=== PATIENT | male | born 1970 | race Caucasian/White ===

== ENCOUNTER 2019-08-17 15:30 | Emergency (ER) | payer MEDICARE, SELFPAY ==
[2019-08-17 15:34] VITALS: BMI 25.1
--- NOTE | 2019-08-17 15:36 | W.ED.SKABFB ---
HPI - Skin/Abscess/Foreign Bdy General: Chief complaint: Skin/Abscess/Foreign Body Stated complaint: INFECTION ON ABDOMEN Time Seen by Provider: 08/17/19 15:35 Source: patient Mode of arrival: ambulatory Limitations: no limitations History of Present Illness: HPI narrative: Patient comes in with a sore crusting area to the umbilical area. Patient reports that he he has had more lesions spreading out from the original lesion now. Patient denies any fever or significant pain. Patient does have a history of diabetes. Patient appears well. Patient appears in no pain. MD complaint: lesion Review of Systems General: Reports: 10 or more systems reviewed and unremarkable except in HPI and below Skin/Breast: Reports: new lesion PFSH ED PFSH: Social History Smoking and tobacco status: current every day smoker Physical Exam Const: COMMON NORMALS: no apparent distress and oriented x3 GENERAL APPEARANCE: cooperative HENMT: COMMON NORMALS: normocephalic, external ears normal, EAC's normal, TM's normal bilaterally and external nose normal HEAD & SCALP: normal to inspection and normocephalic FACE & SINUS: normal facial exam NOSE: external nose normal GENERAL EAR: hearing not grossly impaired EXTERNAL EAR: Yes external ears normal EXTERNAL AUDITORY CANAL: EAC's normal TYMPANIC MEMBRANE: TM's normal bilaterally MOUTH: oral and palatal mucosa normal THROAT: posterior oropharynx normal Eye: COMMON NORMALS: PERRL and EOMs intact bilaterally PUPIL: Yes PERRL Neck/C-Spine: COMMON NORMALS: full ROM and no lymphadenopathy Lymph: LYMPHATIC: no lymphedema noted Chest: COMMONS NORMALS: inspection of chest normal and palpation of chest normal Resp: COMMON NORMALS: normal respiratory effort and clear to auscultation bilaterally AUSCULTATION: clear to auscultation bilaterally Cardio: COMMON NORMALS: regular rate and regular rhythm RATE: regular rate RHYTHM: regular rhythm GI: COMMON NORMALS: normal to inspection, nondistended, normoactive bowel sounds and non-tender : COMMON NORMALS: Yes no CVA tenderness BLADDER/KIDNEY EXAM: Yes no CVA tenderness Back/Pelvis: COMMON NORMALS: no CVA tenderness and thoracic and lumbar spine normal to inspection Extremity: COMMON NORMALS: normal to inspection GENERAL: No edema Neuro: COMMON NORMALS: oriented x3, moves all extremities and no focal motor deficits Psych: COMMON NORMALS: mental status grossly normal and cooperative Skin: NARRATIVE SKIN EXAM: Patient has crusted lesions to the umbilical area with surrounding satellite radiations. Minimal redness is noted surrounding each of the lesions. Mild tenderness is noted with palpation of the darker redder lesions. No significant induration is noted. No abscess formation is noted. Course Vital Signs: Vital signs: Vital Signs Temperature 97.7 F 08/17/19 15:37 Pulse Rate 79 08/17/19 15:37 Respiratory Rate 16 08/17/19 15:37 Blood Pressure 185/109 08/17/19 15:37 Pulse Oximetry 98 08/17/19 15:37 MDM - Skin/Abscess/Foreign Bdy MDM Narrative: Medical decision making narrative: Patient comes in today for complaints of developing lesions to the umbilical area. On exam patient has some crusted lesions to the umbilicus and surrounding area. Vital signs are normal. Differential diagnosis includes folliculitis, cellulitis, impetigo, candidiasis. Will start patient on antibiotics of sulfa and mupirocin. Patient was recommended to drink plenty of fluids and monitor for worsening signs and symptoms. Patient was instructed on the use of the antibiotic for the treatment. Patient reports understanding. Discharge Plan Discharge Patient Disposition: Home, Self-Care Clinical Impression: Impetigo Condition: Stable Prescriptions: New mupirocin 2 % ointment 1 applic TOPICAL BID Qty: 22 RF: 0 Bactrim DS 800-160 mg tablet 1 tab PO BID 10 Days Qty: 20 RF: 0 Discharge Orders: Discharge Order (Routine); Ordered 08/17/19 Ordered By: Leonidas Soto Referrals: BALBINA RICKETTS AGNP [Family Provider] - Discharge Diet: Usual diet Discharge Activity: Increase activity as tolerated Patient Instructions: Impetigo (ED) Activity Restrictions/Additional Instructions: Avoid scratching and picking at wounds Good handwashing Medications as directed Monitor for new lesions or new concerns Follow-up with primary care as needed Return to ER for high fever or worsening symptoms Coding Level of Care Code ED Satellite Television Installer for Seun Parada Exam Comprehensive
[2019-08-17 15:37] VITALS: BP 185/109; PULSE 79; RESP 16; TEMP 36.5; O2SAT 98
[2019-08-17 15:47] VITALS: O2SAT 98
[2019-08-17 15:48] VITALS: BP 132/89; PULSE 76; RESP 18; O2SAT 97
== END 2019-08-17 15:49 | disposition home or self-care (01) ==
LOC: ER 15:50
PROVIDERS: Emergency Provider Nurse Practitioner Family; Family Provider Nurse Practitioner
DX: L01.00 Impetigo, unspecified (principal); F17.200 Nicotine dependence, unspecified, uncomplicated
CPT/HCPCS: 12345; 99282

== ENCOUNTER 2019-10-11 23:26 | Emergency (ER) | payer MEDICARE, SELFPAY ==
--- NOTE | 2019-10-11 23:32 | ECG_ITS ---
Measurements Intervals [place] Rate: 112 P: [place]: 0 QRS: 86 QRSD: 101 T: -7 QT: 334 QTc: 456 Sinus TACHYCARDIA WITH RAPID VENTRICULAR RESPONSE ST DEVIATION AND MODERATE T-WAVE ABNORMALITY, CONSIDER LATERAL ISCHEMIA [-0.1+ mV T WAVE IN I/aVL/V5/V6] Compared to ECG 04/06/2019 18:08:31 Sinus rhythm no longer present Myocardial infarct finding no longer present T-wave abnormality still present Possible ischemia still present Electronically Signed On 10-12-2019 8:15:34 CDT by Kiel Joshi M.D. [id number]
--- NOTE | 2019-10-11 23:32 | XRR_ITS ---
PROCEDURE INFORMATION: Exam: XR Chest, 1 View Exam date and time: 10/11/2019 11:47 PM Age: 49 years old Clinical indication: Chest pain; Type not specified TECHNIQUE: Imaging protocol: XR of the chest Views: 1 view. COMPARISON: CR Chest 1 [place] [id number] 04/05/2019 3:56 PM FINDINGS: Lungs: Interstitial prominence without acute airspace disease. Pleural space: No pleural effusion. Heart/Mediastinum: No cardiomegaly. Vasculature: Calcification of the thoracic aorta. Bones/joints: Unremarkable. When correlating with the previous study, no significant interval changes are present. XR/XR chest 1V portable [id number] IMPRESSION: Stable appearance of the chest, not significantly changed from 04/05/19.
[2019-10-11 23:36] VITALS: BP 187/90; PULSE 111; RESP 18; TEMP 36.6; O2SAT 96; BMI 26.4
--- NOTE | 2019-10-11 23:49 | ED_ITS ---
HPI - Chest Pain General: Chief Complaint: Chest Pain Stated Complaint: cp Time Seen by Provider: 10/11/19 23:44 History of Present Illness: HPI narrative: Patient comes in with episode of chest pain and elevated blood pressure. Patient states that he was without his blood pressure medication for 2 or 3 days and noticed that it was really high this evening. Patient felt palpitations with his blood pressure being high and then started having some left side chest discomfort. Patient recently had some angioplasty done to his lower extremities bilaterally. Patient appears well. Patient appears in no pain at this time. Patient does report low grade pain though. Review of Systems General: Reports: 10 or more systems reviewed and unremarkable except in HPI and below Card: Reports: chest pain PFSH ED PFSH: Social History Smoking and tobacco status: current every day smoker Physical Exam Const: COMMON NORMALS: no acute distress and patient oriented x3 GENERAL APPEARANCE: cooperative HENMT: COMMON NORMALS: normocephalic and Normal external nose present HEAD & SCALP: normal to inspection and normocephalic NOSE: Normal external nose present MOUTH: Normal oral and palatal mucosa present Eye: GENERAL EYE: appearance normal, both eyes and all related structures Neck/C-Spine: COMMON NORMALS: full ROM Lymph: LYMPHATIC: no lymphadenopathy noted Chest: COMMONS NORMALS: normal inspection of the chest Resp: COMMON NORMALS: normal respiratory effort EFFORT & INSPECTION: Yes able to speak in complete sentences Cardio: COMMON NORMALS: regular rate and regular rhythm RATE: regular rate RHYTHM: regular rhythm GI: COMMON NORMALS: non-tender : COMMON NORMALS: Yes no CVA tenderness BLADDER/KIDNEY EXAM: Yes no CVA tenderness Back/Pelvis: COMMON NORMALS: no CVA tenderness and thoracic and lumbar spine normal to inspection Extremity: COMMON NORMALS: normal to inspection Neuro: COMMON NORMALS: patient oriented x3 and moves all extremities Psych: COMMON NORMALS: mental status grossly normal and cooperative Skin: NARRATIVE SKIN EXAM: Multiple insect bites are noted to the lower extremities. Patient reports that they are mosquito bites. Course Vital Signs: Vital signs: Vital Signs Temperature 97.8 F 10/11/19 23:36 Pulse Rate 111 H 10/11/19 23:36 Respiratory Rate 18 10/11/19 23:36 Blood Pressure 187/90 10/11/19 23:36 Pulse Oximetry 96 10/11/19 23:36 MDM - Chest Pain MDM Narrative: Medical decision making narrative: Patient comes in today for concerns of chest pain and palpitations. Patient reports being out of his blood pressure medicine for the last 2 to 3 days and ended up coming in due to some chest discomfort after he noticed his blood pressure was really high. Patient appears well. Patient appears in no acute distress. Vital signs were normal except for some elevation in blood pressure. Differential diagnosis included ACS, stable angina, hypertensive crisis. Laboratory values noted no change in troponin at the 2-hour pedro. Remainder of labs were unremarkable except for some hyperglycemia with a blood glucose of 403. Reviewed exam with patient suspect patient had some stable angina may be due to his uncontrolled blood pressure. Discussed patient with his medication whether or not he needed refills for his medication he states that they were available at the pharmacy he was just unable to get them picked up. Recommend continuing with routine care and or to return to the ER for worsening symptoms. Patient reported understanding. Lab Data: Labs: Lab Results 10/11/19 10/11/19 10/11/19 Range/Units 23:51 23:51 23:51 WBC 7.4 (4.0-10.0) 10^3/ uL RBC 4.24 (4.1-5.3) 10^6/u L Hgb 13.6 (11.7-16.6) g/dL Hct 39.8 L (42.0-52.0) % MCV 93.9 (80-94) fL MCH 32.1 (28.0-34.0) pg MCHC 34.2 (30.0-36.0) g/dL RDW 13.3 (12.1-15.1) % Plt Count 245 (130-400) 10^3/c mm MPV 10.8 H (7.4-10.4) fL Neut % (Auto) 58.4 % Lymph % (Auto) 24.6 % Schley % (Auto) 9.5 % Eos % (Auto) 6.1 % Baso % (Auto) 1.0 % Neut # (Auto) 4.3 (1.8-7.7) 10^3/u L Lymph # (Auto) 1.8 (0.8-4.8) 10^3/u L [place] # (Auto) 0.7 (0.2-0.9) 10^3/u L Eos # (Auto) 0.5 (0.0-0.8) 10^3/u L Baso # (Auto) 0.1 (0.0-0.1) 10^3/u L Nucleated RBC % (a uto) 0 % Nucleated RBCs # 0.0 /100WBC PT 11.50 (10.5-13.3) SECO NDS INR 0.82 (0.8-1.2) Sodium 136 (136-145) mmol/L Potassium 4.4 (3.5-5.1) mmol/L Chloride 100 (98-107) mmol/L Carbon Dioxide 25 (22-29) mmol/L Anion Gap 15.4 (5-19) BUN 20 (6-20) mg/dL Creatinine 1.0 (0.7-1.2) mg/dL GFR Calculation 78.8 L (90-130) mL/min Glucose 403 H (65-115) mg/dL Calculated Osmolal ity 295 (285-295) mOsm/k g Calcium 9.1 (8.5-10.5) mg/dL Magnesium 1.9 (1.7-2.3) mg/dL Total Bilirubin 0.2 (0.15-1.2) mg/dL AST 13 (0-40) U/L ALT 21 (0-41) U/L Alkaline Phosphata se 63 (40-130) IU/L Troponin T Baselin e (0-15) ng/mL Troponin T 120 Min shaheed (0-15) ng/mL Total Protein 7.0 (6.6-8.7) g/dL Albumin 4.1 (3.5-5.2) g/dL Globulin 2.9 (1.3-4.6) g/dL Lipase 79 H (13-60) U/L Urine Color (Yellow) Urine Appearance (CLEAR) Urine pH (5-7) Ur Specific Gravit y (1.005-1.030) Urine Protein (Negative) Urine Glucose (UA) (Normal) Urine Ketones (Negative) Urine Blood (Negative) Urine Nitrate (Negative) Urine Bilirubin (NEGATIVE) Urine Urobilinogen (Negative) mg/dL Ur Leukocyte Sherrell ase (Negative) Urine RBC (0-2) /hpf Urine WBC (0-5) /hpf Ur Squamous Epith Cells (0-5) Urine Bacteria (NONE) 10/11/19 10/12/19 10/12/19 Range/Units 23:51 01:01 01:47 WBC (4.0-10.0) 10^3/ uL RBC (4.1-5.3) 10^6/u L Hgb (11.7-16.6) g/dL Hct (42.0-52.0) % MCV (80-94) fL MCH (28.0-34.0) pg MCHC (30.0-36.0) g/dL RDW (12.1-15.1) % Plt Count (130-400) 10^3/c mm MPV (7.4-10.4) fL Neut % (Auto) % Lymph % (Auto) % Schley % (Auto) % Eos % (Auto) % Baso % (Auto) % Neut # (Auto) (1.8-7.7) 10^3/u L Lymph # (Auto) (0.8-4.8) 10^3/u L Schley # (Auto) (0.2-0.9) 10^3/u L Eos # (Auto) (0.0-0.8) 10^3/u L Baso # (Auto) (0.0-0.1) 10^3/u L Nucleated RBC % (a uto) % Nucleated RBCs # /100WBC PT (10.5-13.3) SECO NDS INR (0.8-1.2) Sodium (136-145) mmol/L Potassium (3.5-5.1) mmol/L Chloride (98-107) mmol/L Carbon Dioxide (22-29) mmol/L Anion Gap (5-19) BUN (6-20) mg/dL Creatinine (0.7-1.2) mg/dL GFR Calculation (90-130) mL/min Glucose (65-115) mg/dL Calculated Osmolal ity (285-295) mOsm/k g Calcium (8.5-10.5) mg/dL Magnesium (1.7-2.3) mg/dL Total Bilirubin (0.15-1.2) mg/dL AST (0-40) U/L ALT (0-41) U/L Alkaline Phosphata se (40-130) IU/L Troponin T Baselin e 22 H (0-15) ng/mL Troponin T 120 Min shaheed 24.77 H (0-15) ng/mL Total Protein (6.6-8.7) g/dL Albumin (3.5-5.2) g/dL Globulin (1.3-4.6) g/dL Lipase (13-60) U/L Urine Color Yellow (Yellow) Urine Appearance Clear (CLEAR) Urine pH 7 (5-7) Ur Specific Gravit y 1.005 (1.005-1.030) Urine Protein Neg (Negative) Urine Glucose (UA) 4+ H (Normal) Urine Ketones 1+ H (Negative) Urine Blood Neg (Negative) Urine Nitrate Negative (Negative) Urine Bilirubin Neg (NEGATIVE) Urine Urobilinogen Norm (Negative) mg/dL Ur Leukocyte Sherrell ase Negative (Negative) Urine RBC 0-4 H (0-2) /hpf Urine WBC Rare (0-5) /hpf Ur Squamous Epith Cells Rare (0-5) Urine Bacteria Trace (NONE) EKG Data^: EKG 1: Attestation: I personally reviewed and interpreted this EKG as follows: (2335, EKG shows sinus rhythm, no ectopy, no ST elevation, regular rate at 112 bpm, when compared to previous EKG from April 06, 2019 no significant changes were noted.) EKG 2: Attestation: I personally reviewed and interpreted this EKG as follows: (147, sinus rhythm rate 90 bpm regular, no ectopy, no ST elevation.) Discharge Plan Discharge Patient Disposition: Home, Self-Care Clinical Impression: Stable angina Condition: Stable Prescriptions: No Action mupirocin 2 % ointment 1 applic TOPICAL BID Qty: 22 RF: 0 Discharge Orders: Discharge Order (Routine); Ordered 10/12/19 Ordered By: Leonidas Soto Discharge Diet: Usual diet Discharge Activity: Increase activity as tolerated Activity Restrictions/Additional Instructions: Home and rest. Continue with routine medications as directed. Follow-up with primary care for recheck in 1 week. Return to the ER for worsening symptoms or new concerns. Coding Level of Care Code ED Choir Accompanist for Vivekg Fwd Exam Comprehensive
[2019-10-12 00:01] LABS: Basophils # 0.1 10^3/uL (0.0-0.1); Eosinophils # 0.5 10^3/uL (0.0-0.8); Eosinophils % 6.1 %; Hematocrit 39.8 % (42.0-52.0); Hemoglobin 13.6 g/dL (11.7-16.6); Lymphocytes # 1.8 10^3/uL (0.8-4.8); Lymphocytes % 24.6 %; Mean Corpuscular HGB Conc 34.2 g/dL (30.0-36.0); Mean Corpuscular Hemoglobin 32.1 pg (28.0-34.0); Mean Corpuscular Volume 93.9 fL (80-94); Mean Platelet Volume 10.8 fL (7.4-10.4); Monocytes # 0.7 10^3/uL (0.2-0.9); Monocytes % 9.5 %; Neutrophils # 4.3 10^3/uL (1.8-7.7); Neutrophils % 58.4 %; Nucleated Red Blood Cells % 0 %; Platelet Count 245 10^3/cmm (130-400); Red Blood Count 4.24 10^6/uL (4.1-5.3); Red Cell Distribution Width 13.3 % (12.1-15.1); White Blood Count 7.4 10^3/uL (4.0-10.0)
[2019-10-12] MEDS: aspirin 325 mg Tablet PO (00:01)
[2019-10-12] MEDS: nitroglycerin 0.4 mg sublingual Tablet SUBLINGUAL (00:02)
[2019-10-12 00:10] LABS: INR 0.82 (0.8-1.2)
[2019-10-12 00:16] LABS: Alanine Aminotransferase 21 U/L (0-41); Albumin Level 4.1 g/dL (3.5-5.2); Alkaline Phosphatase 63 IU/L (40-130); Anion Gap 15.4 (5-19); Aspartate Amino Transferase 13 U/L (0-40); Blood Urea Nitrogen 20 mg/dL (6-20); Calcium 9.1 mg/dL (8.5-10.5); Carbon Dioxide 25 mmol/L (22-29); Chloride 100 mmol/L (98-107); Globulin 2.9 g/dL (1.3-4.6); Glomerular Filtration Rate 78.8 mL/min (90-130); Glucose 403 mg/dL (65-115); Lipase 79 U/L (13-60); Magnesium 1.9 mg/dL (1.7-2.3); Osmolality Calculated 295 mOsm/kg (285-295); Potassium 4.4 mmol/L (3.5-5.1); Sodium 136 mmol/L (136-145); Total Bilirubin 0.2 mg/dL (0.15-1.2)
[2019-10-12 00:18] LABS: Troponin(5th) Baseline 22 ng/mL (0-15)
[2019-10-12 01:09] VITALS: BP 143/86; PULSE 88; RESP 16; O2SAT 96
[2019-10-12 01:30] LABS: Bilirubin Urine Neg (NEGATIVE); Blood Urine Neg (Negative); Glucose Urine UA 4+ (Normal); Ketones Urine 1+ (Negative); Leukocyte Esterase Urine Negative (Negative); Nitrate Urine Negative (Negative); Protein Urine Neg (Negative); Specific Gravity, Urine 1.005 (1.005-1.030); Urine Appearance Clear (CLEAR); Urine Color Yellow (Yellow); Urobilinogen Urine Norm (Negative); pH Urine 7 (5-7)
[2019-10-12 01:31] LABS: Add Urine Culture? No; Bacteria Urine TRACE; RBC Urine 0-4 /hpf (0-2); Squamous Epithelial Cell Urine RARE (0-5); WBC Urine RARE /hpf (0-5)
--- NOTE | 2019-10-12 01:32 | ECG_ITS ---
Measurements Intervals [place] Rate: 90 P: 67 RI: 147 QRS: 116 QRSD: 100 T: -39 QT: 355 QTc: 436 SINUS RHYTHM INCOMPLETE RIGHT BUNDLE BRANCH BLOCK [90+ ms QRS DURATION, TERMINAL R IN V1/V V1/V2, 40+ m 40+ ms S IN I/aVL/V4/V5/V6] RIGHT VENTRICULAR HYPERTROPHY [SOME/ALL OF: PROMINENT R IN V1, LATE TRANSIT TRANSITION, RAD,RAD, CRISSY, SSS] ST DEVIATION AND MODERATE T-WAVE ABNORMALITY, CONSIDER LATERAL ISCHEMIA [-0.1+ [-0.1+mV [-0.1+mV mV mV T WAVE IN I/aVL/V5/V6] ST DEVIATION AND MODERATE T-WAVE ABNORMALITY, CONSIDER INFERIOR ISCHEMIA [-0 [-0.1+ mV mV T WAVE IN II/aVF] Electronically Signed On 10-12-2019 8:17:39 CDT by Kiel Joshi M.D. [id number]
[2019-10-12 02:11] LABS: Troponin 5 2HR 24.77 ng/mL (0-15); Troponin 5 2HR Delta 2.77 ABS# (0-10)
[2019-10-12 02:52] VITALS: BP 138/80; PULSE 84; RESP 16; O2SAT 96
== END 2019-10-12 02:55 | disposition home or self-care (01) ==
PROVIDERS: Emergency Medicine; Emergency Provider Nurse Practitioner Family
DX: I20.8 Other forms of angina pectoris (principal); F17.210 Nicotine dependence, cigarettes, uncomplicated
CPT/HCPCS: 12345; 71045; 80053; 81001; 83690; 83735; 84484; 85025; 85610; 93005; 99283; 99284

== ENCOUNTER 2020-03-12 06:06 | Emergency (ER) | payer MEDICARE, SELFPAY ==
[2020-03-12 06:07] VITALS: BP 195/109; PULSE 83; RESP 18; TEMP 36.4; O2SAT 94; BMI 26.4
--- NOTE | 2020-03-12 06:18 | PC.NURSE ---
EKG done at 0615 and shown to ER doctor
--- NOTE | 2020-03-12 06:23 | ED_ITS ---
HPI - Allergic Reaction General: Chief complaint: Allergic Reaction Stated complaint: ETOH AND ALLERGIC REACTION Time Seen by Provider: 03/12/20 06:17 History of Present Illness: HPI narrative: 49-year-old male presents to the emergency room with complaint of rash. States he woke up with this rash on the trunk and lower extremities. He was transported to the ER by EMS he was given Benadryl and epinephrine and reports that the rash has resolved. He has had this in the past but is never been evaluated for it before he denies any chest pain or abdominal pain denies any difficulty with breathing. Denies any recent respiratory illness or any flulike symptoms. MD complaint: allergic reaction and hives Onset (ago): minute(s) Exposure: unknown Associated symptoms: Deny abdominal pain, difficulty breathing, dysphagia, dizziness, facial swelling, hoarseness, itching, lip swelling, nausea, rash, tongue swelling or vomiting Review of Systems ENMT: Denies: hoarseness GI: Denies: abdominal pain, nausea, vomiting or dysphagia Neuro: Denies: dizziness All/Imm: Denies: tongue swelling or facial swelling PFSH ED PFSH: Social History Smoking and tobacco status: current every day smoker Course Vital Signs: Vital signs: Vital Signs Temperature 98.6 F 03/12/20 07:27 Pulse Rate 88 03/12/20 07:27 Respiratory Rate 18 03/12/20 07:27 Blood Pressure 164/94 03/12/20 07:27 Pulse Oximetry 96 03/12/20 07:27 MDM - Allergic Reaction MDM Narrative: Medical decision making narrative: Patient is feeling much better. His sats do drop a little bit while he is in bed and sleeping. But when I wake him up any is sitting up and talking his sats returned to normal he does admit to having some sleep apnea encourage him to follow-up with that. We will go ahead and discharge him home for now can use Zyrtec as needed Lab Data: Labs: Lab Results 03/12/20 03/12/20 Range/Units 06:41 06:41 WBC 7.6 (4.0-10.0) 10^3/ uL RBC 4.48 (4.1-5.3) 10^6/u L Hgb 13.7 (11.7-16.6) g/dL Hct 41.0 L (42.0-52.0) % MCV 91.5 (80-94) fL MCH 30.6 (28.0-34.0) pg MCHC 33.4 (30.0-36.0) g/dL RDW 13.2 (12.1-15.1) % Plt Count 237 (130-400) 10^3/c mm MPV 10.9 H (7.4-10.4) fL Neut % (Auto) 66.7 % Lymph % (Auto) 20.5 % [place] % (Auto) 8.7 % Eos % (Auto) 2.8 % Baso % (Auto) 0.9 % Neut # (Auto) 5.03 (1.8-7.7) 10^3/u L Lymph # (Auto) 1.6 (0.8-4.8) 10^3/u L [place] # (Auto) 0.7 (0.2-0.9) 10^3/u L Eos # (Auto) 0.2 (0.0-0.8) 10^3/u L Baso # (Auto) 0.1 (0.0-0.1) 10^3/u L Nucleated RBC % (a uto) 0 % Nucleated RBCs # 0.0 /100WBC Sodium 134 L (136-145) mmol/L Potassium 4.5 (3.5-5.1) mmol/L Chloride 97 L (98-107) mmol/L Carbon Dioxide 24 (22-29) mmol/L Anion Gap 17.5 (5-19) BUN 21 H (6-20) mg/dL Creatinine 1.0 (0.7-1.2) mg/dL GFR Calculation 78.8 L (90-130) mL/min Glucose 396 H (65-115) mg/dL Calculated Osmolal ity 298 H (285-295) mOsm/k g Calcium 9.0 (8.5-10.5) mg/dL Total Bilirubin 0.3 (0.15-1.2) mg/dL AST 13 (0-40) U/L ALT 17 (0-41) U/L Alkaline Phosphata se 58 (40-130) IU/L Total Protein 6.3 L (6.6-8.7) g/dL Albumin 4.2 (3.5-5.2) g/dL Globulin 2.1 (1.3-4.6) g/dL Discharge Plan Discharge Patient Disposition: Home Clinical Impression: Urticaria Condition: Stable Prescriptions: New cetirizine 10 mg capsule 10 mg PO BID PRN (Reason: allergy symptoms) Qty: 60 RF: 0 No Action mupirocin 2 % ointment 1 applic TOPICAL BID Qty: 22 RF: 0 Discharge Orders: Discharge Order (Routine); Ordered 03/12/20 Ordered By: Jose Mike Discharge Diet: Usual diet Discharge Activity: Increase activity as tolerated Activity Restrictions/Additional Instructions: Cetirizine 10 mg 1 p.o. twice daily as needed for rash or hives. Follow-up with your primary care doctor. If you have worsening or changes symptoms return. Discharge Date/Time: 03/12/20 07:31 Coding Level of Care Code ED Education Courses Sales Representative for Seun Parada
[2020-03-12 06:45] LABS: Basophils # 0.1 10^3/uL (0.0-0.1); Basophils % 0.9 %; Eosinophils # 0.2 10^3/uL (0.0-0.8); Eosinophils % 2.8 %; Hemoglobin 13.7 g/dL (11.7-16.6); Lymphocytes # 1.6 10^3/uL (0.8-4.8); Lymphocytes % 20.5 %; Mean Corpuscular HGB Conc 33.4 g/dL (30.0-36.0); Mean Corpuscular Hemoglobin 30.6 pg (28.0-34.0); Mean Corpuscular Volume 91.5 fL (80-94); Mean Platelet Volume 10.9 fL (7.4-10.4); Monocytes # 0.7 10^3/uL (0.2-0.9); Monocytes % 8.7 %; Neutrophils # 5.03 10^3/uL (1.8-7.7); Neutrophils % 66.7 %; Nucleated Red Blood Cells % 0 %; Platelet Count 237 10^3/cmm (130-400); Red Blood Count 4.48 10^6/uL (4.1-5.3); Red Cell Distribution Width 13.2 % (12.1-15.1); White Blood Count 7.6 10^3/uL (4.0-10.0)
[2020-03-12 06:57] VITALS: BP 138/73; PULSE 85; RESP 18; O2SAT 98
--- NOTE | 2020-03-12 06:58 | PC.NURSE ---
Received report assumed care, no changes noted from report. Continue to monitor.
[2020-03-12 07:01] LABS: Alanine Aminotransferase 17 U/L (0-41); Albumin Level 4.2 g/dL (3.5-5.2); Alkaline Phosphatase 58 IU/L (40-130); Anion Gap 17.5 (5-19); Aspartate Amino Transferase 13 U/L (0-40); Blood Urea Nitrogen 21 mg/dL (6-20); Carbon Dioxide 24 mmol/L (22-29); Chloride 97 mmol/L (98-107); Globulin 2.1 g/dL (1.3-4.6); Glomerular Filtration Rate 78.8 mL/min (90-130); Glucose 396 mg/dL (65-115); Osmolality Calculated 298 mOsm/kg (285-295); Potassium 4.5 mmol/L (3.5-5.1); Sodium 134 mmol/L (136-145); Total Bilirubin 0.3 mg/dL (0.15-1.2); Total Protein 6.3 g/dL (6.6-8.7)
[2020-03-12 07:27] VITALS: BP 164/94; PULSE 88; RESP 18; TEMP 37; O2SAT 96
== END 2020-03-12 07:31 | disposition home or self-care (01) ==
PROVIDERS: Emergency Provider Family Medicine
DX: L50.9 Urticaria, unspecified (principal); F17.210 Nicotine dependence, cigarettes, uncomplicated
CPT/HCPCS: 12345; 80053; 85025; 99283

== ENCOUNTER → 2020-07-21 08:37 | Outpatient (BNVA) | payer MEDICARE, SELFPAY | PROVIDERS: Visit Provider Psychiatry & Neurology Psychiatry | DX: F32.9 Major depressive disorder, single episode, unspecified (principal) | CPT/HCPCS: 90792 ==

== ENCOUNTER → 2020-09-01 08:18 | Outpatient (BNVA) | payer MEDICARE, SELFPAY | PROVIDERS: Visit Provider Psychiatry & Neurology Psychiatry | DX: F32.9 Major depressive disorder, single episode, unspecified (principal); F43.12 Post-traumatic stress disorder, chronic | CPT/HCPCS: 99214 ==

== ENCOUNTER → 2020-10-06 11:05 | Outpatient (BNVA) | payer MEDICARE, MEDICAID, SELFPAY | PROVIDERS: Visit Provider Psychiatry & Neurology Psychiatry | DX: F32.9 Major depressive disorder, single episode, unspecified (principal) | CPT/HCPCS: 99214 ==

== ENCOUNTER 2020-11-15 13:05 | Emergency (ER) | payer MEDICARE, MEDICAID, SELFPAY ==
[2020-11-15 13:24] VITALS: BP 153/79; PULSE 110; RESP 18; TEMP 36.7; O2SAT 95; BMI 26.4
--- NOTE | 2020-11-15 14:23 | ECG_ITS ---
[facility] Test Date: 2020-11-15 Pat Name: Jeffrey Ford Department: Room: Gender: Male Parks And Recreation Manager: : 1970 Requested By: Jam Bobby Order Number: [id number] Reading MD: LUANNE COONEY Measurements Intervals [place] Rate: 89 P: 59 AL: 149 QRS: 49 QRSD: 101 T: 24 QT: 349 QTc: 425 Interpretive Statements SINUS RHYTHM ST DEVIATION AND MODERATE T-WAVE ABNORMALITY, CONSIDER LATERAL ISCHEMIA [-0.1+ mV T WAVE IN I/aVL/V5/V6] Compared to ECG 10/12/2019 01:46:29 Incomplete right bundle-branch block no longer present Right ventricular hypertrophy no longer present Atrial abnormality no longer present T-wave abnormality still present Possible ischemia still present Electronically Signed On 11-16-2020 18:50:08 CDT by LUANNE COONEY [id number]
--- NOTE | 2020-11-15 14:24 | ED_ITS ---
HPI - Extremity Problem General: Chief complaint: Extremity Problem,Nontraumatic Stated complaint: CRAMPING IN LEFT LEG Time Seen by Provider: 11/15/20 13:59 Source: patient Mode of arrival: ambulatory Limitations: no limitations History of Present Illness: HPI Narrative: Patient with increasing pain over the last 2 days with walking. Patient states his is cramping in his left lower leg and foot. States he had claudication in the left lower extremity for approximately 3 to 4 weeks. He recently had arterial Doppler of the lower extremities at [facility] on November 10. He showed me the report from his phone and said that patient has mild arterial insufficiency in the right lower extremity and moderate arterial insufficiency in the left lower leg. They were not able to see blood flow in the medial ankle. Complaint: extremity pain Onset (ago): week(s) (4) Pain Consistency: other (Worsening over the past 2 to 3 days.) Location: left and lower extremity (Lower leg and foot) Quality: sharp and other (Aching, cramping) Radiation: none Relieving factors: nothing Exacerbating factors: walking Associated symptoms: Reports myalgias; Deny arthralgias, chest pain, fever(s), rash or short of breath Context: history of peripheral vascular disease and other (Patient has had femoral stents in the past. Patient presently taking Plavix and aspirin) Review of Systems Const: Denies: fever(s) Eyes: Denies: change in vision ENMT: Denies: throat pain Card: Reports: leg pain with exertion; Denies: chest pain or edema Resp: Denies: dyspnea or wheezing GI: Denies: abdominal pain, nausea or vomiting : Denies: flank pain Musc: Denies: neck pain or back pain Skin/Breast: Reports: other (Mild cyanosis of left second through fifth toes. Cap refill decr L toes); Denies: rash Neuro: Denies: headache(s) or numbness in extremities Psych: Denies: anxiety Nolan/Lymph: Denies: enlarged lymph nodes PFSH ED PFSH: Social History Smoking and tobacco status: current every day smoker Physical Exam Const: COMMON NORMALS: no acute distress, patient oriented x3, no limitations and well nourished EXAM LIMITATIONS: altered mental status GENERAL APPEARANCE: cooperative HENMT: COMMON NORMALS: normocephalic and atraumatic HEAD & SCALP: normocephalic and atraumatic FACE & SINUS: normal facial exam Eye: COMMON NORMALS: EOMs intact bilaterally Neck/C-Spine: COMMON NORMALS: full ROM, no lymphadenopathy, supple and no meningeal signs GENERAL: Yes normal visual inspection Lymph: LYMPHATIC: no lymphadenopathy noted Chest: COMMONS NORMALS: normal inspection of the chest and normal palpation of entire chest wall CHEST: No Ecchymosis present and No rash Resp: COMMON NORMALS: normal respiratory effort, No retractions and clear to auscultation bilaterally EFFORT & INSPECTION: No respiratory distress AUSCULTATION: clear to auscultation bilaterally Cardio: COMMON NORMALS: regular rate and regular rhythm JUGULAR VENOUS DISTENTION: no JVD RATE: regular rate RHYTHM: regular rhythm PERIPHERAL PULSES: radial pulses present, posterior tibial pulses present (1/4 on L) and dorsalis pedis present (1/4 on left) GI: COMMON NORMALS: Normal to inspection, nondistended, normoactive bowel sounds present and non-tender : COMMON NORMALS: Yes no CVA tenderness BLADDER/KIDNEY EXAM: Yes no CVA tenderness Back/Pelvis: COMMON NORMALS: no CVA tenderness Extremity: COMMON NORMALS: normal to inspection, full ROM and capillary refill normal Neuro: COMMON NORMALS: patient oriented x3, CN's II-XII intact bilaterally, no focal motor deficits and no sensory deficits noted MENINGEAL SIGNS: Yes no meningeal signs Psych: COMMON NORMALS: mental status grossly normal and Normal thought process present THOUGHT PROCESS: Normal thought process present Skin: COMMON NORMALS: no rashes or lesions noted and no wounds GENERAL SKIN EXAM: no rashes or lesions noted Course Vital Signs: Vital signs: Vital Signs Temperature 98.1 F 11/15/20 13:24 Pulse Rate 110 H 11/15/20 13:24 Respiratory Rate 18 11/15/20 13:24 Blood Pressure 153/79 11/15/20 13:24 Pulse Oximetry 95 11/15/20 13:24 Critical Care Time Critical Care Time: Critical Care Time: Yes Total Critical Care Time: 50 Attestation: See orders. IV insulin, IV fluids. Treatment of hyperglycemia. CT angiogram of the leg. MDM - Extremity (Nontraumatic) MDM Narrative: Medical decision making narrative: Patient has known peripheral vascular disease. Patient has had increasing claudication over the past 2 to 3 days. Patient has had mild claudication for past month. Lab Data: Labs: Lab Results 11/15/20 11/15/20 11/15/20 Range/Units 15:02 15:02 15:46 WBC 7.4 (4.0-10.0) 10^3/ uL RBC 4.43 (4.1-5.3) 10^6/u L Hgb 13.9 (11.7-16.6) g/dL Hct 40.5 L (42.0-52.0) % MCV 91.4 (80-94) fL MCH 31.4 (28.0-34.0) pg MCHC 34.3 (30.0-36.0) g/dL RDW 12.4 (12.1-15.1) % Plt Count 239 (130-400) 10^3/c mm MPV 10.9 H (7.4-10.4) fL Neut % (Auto) 71.8 % Lymph % (Auto) 16.8 % Graham % (Auto) 8.2 % Eos % (Auto) 1.9 % Baso % (Auto) 1.2 % Neut # (Auto) 5.32 (1.8-7.7) 10^3/u L Lymph # (Auto) 1.3 (0.8-4.8) 10^3/u L Graham # (Auto) 0.6 (0.2-0.9) 10^3/u L Eos # (Auto) 0.1 (0.0-0.8) 10^3/u L Baso # (Auto) 0.1 (0.0-0.1) 10^3/u L Nucleated RBC % (a uto) 0 % Nucleated RBCs # 0.0 /100WBC Sodium Cancelled 133 L Potassium Cancelled 4.8 Chloride Cancelled 96 L Carbon Dioxide Cancelled 26 Anion Gap Cancelled 15.8 BUN Cancelled 21 H Creatinine Cancelled 1.1 GFR Calculation Cancelled 70.3 L Glucose Cancelled 447 H Calculated Osmolal ity Cancelled 298 H Calcium Cancelled 8.9 EKG Data^: EKG 1: Attestation: I personally reviewed and interpreted this EKG as follows: EKG interpretation date: 11/15/20 EKG interpretation time: 17:35 Prior EKG tracings: not available for review Interpretation: Normal sinus rhythm with heart rate 89. Nonspecific ST-T changes. LVH, normal axis. Normal MN interval. Normal P wave. Impression normal sinus rhythm with LVH and nonspecific ST-T changes EKG 2: Attestation: I personally reviewed and interpreted this EKG as follows: EKG interpretation date: 11/15/20 EKG interpretation time: 18:03 Prior EKG tracings: available for review Interpretation: EKG shows normal sinus rhythm heart rate 99, normal MN interval, normal P waves, normal QRS, normal ST segment, normal axis. Normal T waves. Normal ST segment. Impression normal EKG. Discharge Plan Discharge Clinical Impression: Claudication of left upper extremity due to atherosclerosis, Insulin dependent diabetes mellitus with complications, Hyperglycemia due to type 1 diabetes mellitus, Peripheral vascular disease of extremity with claudication Condition: Stable Prescriptions: No Action losartan 50 mg tablet 50 mg PO DAILY RF: 0 duloxetine 60 mg capsule,delayed release(DR/EC) 60 mg PO DAILY 30 Days Qty: 30 RF: 3 aspirin [Adult Aspirin Regimen] 81 mg tablet,delayed release (DR/EC) 81 mg PO DAILY RF: 0 multivitamin Tablet 1 tab PO DAILY RF: 0 Chantix 1 mg tablet 1 mg PO BID RF: 0 propranolol 60 mg capsule,extended release 24 hr 60 mg PO DAILY RF: 0 clopidogrel [Plavix] 75 mg tablet 75 mg PO DAILY RF: 0 metoprolol succinate 25 mg tablet extended release 24 hr 25 mg PO DAILY RF: 0 insulin asp prt-insulin aspart [Novolog Mix 70-30 U-100 Insuln] 100 unit/mL (70-30) solution 12 unit SUBCUT DAILY RF: 0 Toujeo Max U-300 SoloStar 300 unit/mL (3 mL) insulin pen 50 unit SUBCUT Q24H RF: 0 pregabalin 150 mg capsule 150 mg PO DAILY RF: 0 mupirocin 2 % ointment 1 applic TOPICAL BID Qty: 22 RF: 0 cetirizine 10 mg capsule 10 mg PO BID PRN (Reason: allergy symptoms) Qty: 60 RF: 0 Coding Level of Care Code ED Floorhand for Chg Fwd Exam Comprehensive
[2020-11-15 15:13] LABS: Basophils # 0.1 10^3/uL (0.0-0.1); Basophils % 1.2 %; Eosinophils # 0.1 10^3/uL (0.0-0.8); Eosinophils % 1.9 %; Hematocrit 40.5 % (42.0-52.0); Hemoglobin 13.9 g/dL (11.7-16.6); Lymphocytes # 1.3 10^3/uL (0.8-4.8); Lymphocytes % 16.8 %; Mean Corpuscular HGB Conc 34.3 g/dL (30.0-36.0); Mean Corpuscular Hemoglobin 31.4 pg (28.0-34.0); Mean Corpuscular Volume 91.4 fL (80-94); Mean Platelet Volume 10.9 fL (7.4-10.4); Monocytes # 0.6 10^3/uL (0.2-0.9); Monocytes % 8.2 %; Neutrophils # 5.32 10^3/uL (1.8-7.7); Neutrophils % 71.8 %; Nucleated Red Blood Cells % 0 %; Platelet Count 239 10^3/cmm (130-400); Red Blood Count 4.43 10^6/uL (4.1-5.3); Red Cell Distribution Width 12.4 % (12.1-15.1); White Blood Count 7.4 10^3/uL (4.0-10.0)
[2020-11-15 16:06] LABS: Anion Gap 15.8 (5-19); Blood Urea Nitrogen 21 mg/dL (6-20); Calcium 8.9 mg/dL (8.5-10.5); Carbon Dioxide 26 mmol/L (22-29); Chloride 96 mmol/L (98-107); Glomerular Filtration Rate 70.3 mL/min (90-130); Glucose 447 mg/dL (65-115); Osmolality Calculated 298 mOsm/kg (285-295); Potassium 4.8 mmol/L (3.5-5.1); Sodium 133 mmol/L (136-145)
--- NOTE | 2020-11-15 16:21 | CTR_ITS ---
PROCEDURE INFORMATION: Exam: CTA Angiogram of the Abdominal Aorta and Bilateral Lower Extremities (Run-off) With IV Contrast Exam date and time: 11/15/2020 4:21 PM Age: 50 years old Clinical indication: Foot pain; Left; Prior surgery; Surgery date: 6+ months; Surgery type: Rle bypass? ; Additional info: Decreased circulation lower extremity/pain; Left foot pain, patient has known peripheral vascular disease. Increased^claudication and cyanosis to left second through fifth toes. ^ patient is diabetic TECHNIQUE: Imaging protocol: CT angiogram of the abdominal aorta, pelvis and bilateral lower extremities with IV iodinated contrast. 3D rendering (Not supervised by radiologist): MIP and/or 3D reconstructed images were created by the technologist. Radiation optimization: All CT scans at this facility use at least one of these dose optimization techniques: automated exposure control; mA and/or kV adjustment per patient size (includes targeted exams where dose is matched to clinical indication); or iterative reconstruction. Contrast material: OMNI 350; Contrast volume: 95 ml; Contrast route: INTRAVENOUS (IV); COMPARISON: CT abdomen pelvis w con* [id number] 12/10/2018 11:25 AM RADIATION DOSE METRICS: Total DLP (mGy-cm): 1592.41 FINDINGS: Aorta: Calcification of the abdominal aorta and/or iliac arteries consistent with atherosclerotic vessel disease. Calcified and noncalcified plaque in the abdominal aorta without aneurysm or dissection. Celiac trunk and mesenteric arteries: No occlusion or significant stenosis. Renal arteries: 60% stenosis in the origin left renal artery with some poststenotic dilatation. Right iliac arteries: No occlusion or significant stenosis. Right femoral/popliteal arteries: Occluded [place] right superficial femoral artery endovascular stents with reconstitution of small caliber [place] SFA at the distal terminus of the stents. Right infrapopliteal arteries: Occluded right posterior tibial artery in the mid calf with 2 vessel runoff to the right ankle. Left iliac arteries: Patent bilateral common iliac artery endovascular stents. Patent bilateral external iliac artery endovascular stents. Left femoral/popliteal arteries: Occluded left superficial femoral artery endovascular stents which extend into the proximal portion of the left popliteal artery, with reconstitution of the [place] popliteal artery 3 mm distal to the stent. Patent small caliber distal left popliteal artery. Left infrapopliteal arteries: Occluded origin of the left anterior tibial artery with reconstitution 1 cm distal to the origin. Three-vessel runoff to the left ankle. Bypass grafts: Patent right femoropopliteal artery bypass graft. Lungs: Possible hypertrophic cardiomyopathy with 19 mm lateral wall left ventricle and 18 mm septal wall. Liver: No mass. Gallbladder and bile ducts: Unremarkable. No calcified stones. No ductal dilation. Pancreas: Unremarkable. No mass. No ductal dilation. Spleen: Normal. No splenomegaly. Adrenals: Normal. No mass. Kidneys and ureters: Normal. No mass. Stomach and bowel: Unremarkable. No obstruction. No mucosal thickening. Appendix: No evidence of appendicitis. Bladder: Unremarkable. No mass. Reproductive: Unremarkable as visualized. Intraperitoneal space: Unremarkable. No free air. No significant fluid collection. Lymph nodes: No lymphadenopathy. Bones/joints: Severe L5-S1 degenerative disc disease and spondylosis with Modic type III sclerotic endplate degenerative changes. 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 Soft tissues: Unremarkable. CT/CT angio abd aorta runof [id number] IMPRESSION: 1. Possible hypertrophic cardiomyopathy with 19 mm lateral wall left ventricle and 18 mm septal wall. 2. 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 3. 60% stenosis in the origin left renal artery with some poststenotic dilatation. 4. Occluded [place] right superficial femoral artery endovascular stents with reconstitution of small caliber [place] SFA at the distal terminus of the stents. 5. Patent right femoropopliteal artery bypass graft. 6. Occluded right posterior tibial artery in the mid calf with 2 vessel runoff to the right ankle. 7. Occluded left superficial femoral artery endovascular stents which extend into the proximal portion of the left popliteal artery, with reconstitution of the [place] popliteal artery 3 mm distal to the stent. 8. Patent small caliber distal left popliteal artery. 9. Occluded origin of the left anterior tibial artery with reconstitution 1 cm distal to the origin. 10. Three-vessel runoff to the left ankle. Radiation Dose CTDIVOL = (mGy): DLP = 1592.41 (mGy-cm)
[2020-11-15] MEDS: iohexol 350 mg/mL 100 mL Btl IV (17:00)
[2020-11-15] MEDS: insulin regular-human 100 units/1 mL 8 UNIT IVP (17:35)
[2020-11-15] MEDS: sodium chloride 0.9% 500 ML 1000 ML IV (17:39)
[2020-11-15 18:09] VITALS: BP 200/106; PULSE 89; RESP 18; O2SAT 98
--- NOTE | 2020-11-15 18:09 | W.ED.EXTPRO ---
Documented by User: Jam Trevino MD 11/15/20 18:10 HPI - Extremity Problem General: Chief complaint: Extremity Problem,Nontraumatic Stated complaint: CRAMPING IN LEFT LEG Time Seen by Provider: 11/15/20 13:59 Source: patient Mode of arrival: ambulatory Limitations: no limitations History of Present Illness: Pain Consistency: other (Worsening over the past 2 to 3 days.) Location: left and lower extremity (Lower leg and foot) Quality: sharp and other (Aching, cramping) Relieving factors: nothing Exacerbating factors: walking [facility] ED PFSH: Social History Smoking and tobacco status: current every day smoker Course Vital Signs: Vital signs: Vital Signs Temperature 98.1 F 11/15/20 13:24 Pulse Rate 89 11/15/20 19:16 Respiratory Rate 18 11/15/20 19:16 Blood Pressure 162/80 11/15/20 19:16 Pulse Oximetry 98 11/15/20 19:16 MDM - Extremity (Nontraumatic) MDM Narrative: Medical decision making narrative: 1808: Dr. Calderón assumed care of the patient at shift change. Awaiting CT angiogram results. Lab Data: Labs: Lab Results 11/15/20 11/15/20 11/15/20 Range/Units 15:02 15:02 15:46 WBC 7.4 (4.0-10.0) 10^3/ uL RBC 4.43 (4.1-5.3) 10^6/u L Hgb 13.9 (11.7-16.6) g/dL Hct 40.5 L (42.0-52.0) % MCV 91.4 (80-94) fL MCH 31.4 (28.0-34.0) pg MCHC 34.3 (30.0-36.0) g/dL RDW 12.4 (12.1-15.1) % Plt Count 239 (130-400) 10^3/c mm MPV 10.9 H (7.4-10.4) fL Neut % (Auto) 71.8 % Lymph % (Auto) 16.8 % Weakley % (Auto) 8.2 % Eos % (Auto) 1.9 % Baso % (Auto) 1.2 % Neut # (Auto) 5.32 (1.8-7.7) 10^3/u L Lymph # (Auto) 1.3 (0.8-4.8) 10^3/u L Weakley # (Auto) 0.6 (0.2-0.9) 10^3/u L Eos # (Auto) 0.1 (0.0-0.8) 10^3/u L Baso # (Auto) 0.1 (0.0-0.1) 10^3/u L Nucleated RBC % (a uto) 0 % Nucleated RBCs # 0.0 /100WBC Sodium Cancelled 133 L Potassium Cancelled 4.8 Chloride Cancelled 96 L Carbon Dioxide Cancelled 26 Anion Gap Cancelled 15.8 BUN Cancelled 21 H Creatinine Cancelled 1.1 GFR Calculation Cancelled 70.3 L Glucose Cancelled 447 H Calculated Osmolal ity Cancelled 298 H Calcium Cancelled 8.9 Discharge Plan Discharge Patient Disposition: Home Clinical Impression: Claudication of left upper extremity due to atherosclerosis, Insulin dependent diabetes mellitus with complications, Hyperglycemia due to type 1 diabetes mellitus, Peripheral vascular disease of extremity with claudication Condition: Stable Prescriptions: No Action losartan 50 mg tablet 50 mg PO DAILY RF: 0 duloxetine 60 mg capsule,delayed release(DR/EC) 60 mg PO DAILY 30 Days Qty: 30 RF: 3 aspirin [Adult Aspirin Regimen] 81 mg tablet,delayed release (DR/EC) 81 mg PO DAILY RF: 0 multivitamin Tablet 1 tab PO DAILY RF: 0 Chantix 1 mg tablet 1 mg PO BID RF: 0 propranolol 60 mg capsule,extended release 24 hr 60 mg PO DAILY RF: 0 clopidogrel [Plavix] 75 mg tablet 75 mg PO DAILY RF: 0 metoprolol succinate 25 mg tablet extended release 24 hr 25 mg PO DAILY RF: 0 insulin asp prt-insulin aspart [Novolog Mix 70-30 U-100 Insuln] 100 unit/mL (70-30) solution 12 unit SUBCUT DAILY RF: 0 Toujeo Max U-300 SoloStar 300 unit/mL (3 mL) insulin pen 50 unit SUBCUT Q24H RF: 0 pregabalin 150 mg capsule 150 mg PO DAILY RF: 0 mupirocin 2 % ointment 1 applic TOPICAL BID Qty: 22 RF: 0 cetirizine 10 mg capsule 10 mg PO BID PRN (Reason: allergy symptoms) Qty: 60 RF: 0 Discharge Orders: Discharge ED (Routine); Ordered 11/15/20 Ordered By: Tacos Calderón Referrals: Aubree Novoa MD [Physician] - 1-3 days Discharge Diet: Diabetic Discharge Activity: Increase activity as tolerated Patient Instructions: Peripheral Vascular Disorders (ED) Activity Restrictions/Additional Instructions: Return for fever, significant discoloration of feet or toes, other concerning symptoms. Call cardiology on Monday. Tell them that we spoke with Dr. Novoa and he wanted you seen early in the week, to see if an intervention is needed. Coding Level of Care Code ED Laser Print Operator for Chg Fwd Documented by User: Tacos Calderón, 11/15/20 22:39 HPI - Extremity Problem General: Chief complaint: Extremity Problem,Nontraumatic Stated complaint: CRAMPING IN LEFT LEG Time Seen by Provider: 11/15/20 13:59 PFSH ED PFSH: Social History Smoking and tobacco status: current every day smoker Course Vital Signs: Vital signs: Vital Signs Temperature 98.1 F 11/15/20 13:24 Pulse Rate 89 11/15/20 19:16 Respiratory Rate 18 11/15/20 19:16 Blood Pressure 162/80 11/15/20 19:16 Pulse Oximetry 98 11/15/20 19:16 MDM - Extremity (Nontraumatic) MDM Narrative: Medical decision making narrative: 50-year-old male checked out to me at shift change by Dr. Trevino. This gentleman has had an increase in his claudication symptoms. Some even at rest. Laboratory is relatively benign. CTA of the abdomen and pelvis some lower extremities reveals the following. He does have two-vessel runoff to 1 foot, and three-vessel runoff to the other. I spoke with our utility porter to does vascular intervention. He states he will see the patient in the office this week to look at his study, and possibly set up an outpatient cath. He is already on aspirin and Plavix, so medically he is optimized Lab Data: Labs: Lab Results 11/15/20 11/15/20 11/15/20 Range/Units 15:02 15:02 15:46 WBC 7.4 (4.0-10.0) 10^3/ uL RBC 4.43 (4.1-5.3) 10^6/u L Hgb 13.9 (11.7-16.6) g/dL Hct 40.5 L (42.0-52.0) % MCV 91.4 (80-94) fL MCH 31.4 (28.0-34.0) pg MCHC 34.3 (30.0-36.0) g/dL RDW 12.4 (12.1-15.1) % Plt Count 239 (130-400) 10^3/c mm MPV 10.9 H (7.4-10.4) fL Neut % (Auto) 71.8 % Lymph % (Auto) 16.8 % Weakley % (Auto) 8.2 % Eos % (Auto) 1.9 % Baso % (Auto) 1.2 % Neut # (Auto) 5.32 (1.8-7.7) 10^3/u L Lymph # (Auto) 1.3 (0.8-4.8) 10^3/u L Weakley # (Auto) 0.6 (0.2-0.9) 10^3/u L Eos # (Auto) 0.1 (0.0-0.8) 10^3/u L Baso # (Auto) 0.1 (0.0-0.1) 10^3/u L Nucleated RBC % (a uto) 0 % Nucleated RBCs # 0.0 /100WBC Sodium Cancelled 133 L Potassium Cancelled 4.8 Chloride Cancelled 96 L Carbon Dioxide Cancelled 26 Anion Gap Cancelled 15.8 BUN Cancelled 21 H Creatinine Cancelled 1.1 GFR Calculation Cancelled 70.3 L Glucose Cancelled 447 H Calculated Osmolal ity Cancelled 298 H Calcium Cancelled 8.9 Discharge Plan Discharge Patient Disposition: Home Clinical Impression: Claudication of left upper extremity due to atherosclerosis, Insulin dependent diabetes mellitus with complications, Hyperglycemia due to type 1 diabetes mellitus, Peripheral vascular disease of extremity with claudication Condition: Stable Prescriptions: No Action losartan 50 mg tablet 50 mg PO DAILY RF: 0 duloxetine 60 mg capsule,delayed release(DR/EC) 60 mg PO DAILY 30 Days Qty: 30 RF: 3 aspirin [Adult Aspirin Regimen] 81 mg tablet,delayed release (DR/EC) 81 mg PO DAILY RF: 0 multivitamin Tablet 1 tab PO DAILY RF: 0 Chantix 1 mg tablet 1 mg PO BID RF: 0 propranolol 60 mg capsule,extended release 24 hr 60 mg PO DAILY RF: 0 clopidogrel [Plavix] 75 mg tablet 75 mg PO DAILY RF: 0 metoprolol succinate 25 mg tablet extended release 24 hr 25 mg PO DAILY RF: 0 insulin asp prt-insulin aspart [Novolog Mix 70-30 U-100 Insuln] 100 unit/mL (70-30) solution 12 unit SUBCUT DAILY RF: 0 Toujeo Max U-300 SoloStar 300 unit/mL (3 mL) insulin pen 50 unit SUBCUT Q24H RF: 0 pregabalin 150 mg capsule 150 mg PO DAILY RF: 0 mupirocin 2 % ointment 1 applic TOPICAL BID Qty: 22 RF: 0 cetirizine 10 mg capsule 10 mg PO BID PRN (Reason: allergy symptoms) Qty: 60 RF: 0 Discharge Orders: Discharge ED (Routine); Ordered 11/15/20 Ordered By: Tacos Calderón Referrals: Aubree Novoa MD [Physician] - 1-3 days Discharge Diet: Diabetic Discharge Activity: Increase activity as tolerated Patient Instructions: Peripheral Vascular Disorders (ED) Activity Restrictions/Additional Instructions: Return for fever, significant discoloration of feet or toes, other concerning symptoms. Call cardiology on Monday. Tell them that we spoke with Dr. Novoa and he wanted you seen early in the week, to see if an intervention is needed. Coding Level of Care Code ED Laser Print Operator for Seun Parada
[2020-11-15 19:16] VITALS: BP 162/80; PULSE 89; RESP 18; O2SAT 98
== END 2020-11-15 19:16 | disposition home or self-care (01) ==
PROVIDERS: Family Medicine; Emergency Provider Emergency Medicine
DX: I70.212 Atherosclerosis of native arteries of extremities with intermittent claudication, left leg (principal); E10.65 Type 1 diabetes mellitus with hyperglycemia; Z79.4 Long term (current) use of insulin; Z79.82 Long term (current) use of aspirin; Z79.02 Long term (current) use of antithrombotics/antiplatelets; F17.210 Nicotine dependence, cigarettes, uncomplicated
CPT/HCPCS: 75635; 80048; 85025; 93005; 96374; 99283; J1815; J7040; Q9967

== ENCOUNTER 2020-12-25 13:54 | Emergency (ER) | payer MEDICARE, SELFPAY ==
[2020-12-25 14:07] VITALS: BP 177/92; PULSE 77; RESP 15; TEMP 36.6; O2SAT 96; BMI 26.4
[2020-12-25 14:39] LABS: Glucose Point of Care 485 mg/dL (70-110)
[2020-12-25 16:00] VITALS: BP 190/98; PULSE 70; RESP 17; O2SAT 97
--- NOTE | 2020-12-25 16:02 | ED_ITS ---
HPI - General Adult General: Chief complaint: General Medical Stated complaint: stubbling, high bs Time Seen by Provider: 12/25/20 16:01 Review of Systems General: Reports: 10 or more systems reviewed and unremarkable except in HPI and below Narrative: CONSTITUTIONAL: denies fever, fatigue, weakness EYES - denies pain, denies loss of vision EARS - denies ear issues. NOSE - denies congestion or rhinorrhea. THROAT - denies sore throat or difficulty swallowing. CARDIOVASCULAR - denies chest pain and palpitations RESPIRATORY - denies shortness of breath and cough GASTROINTESTINAL - denies abdominal pain, no nausea vomiting, no changes in bowel habits GENITOURINARY - denies dysuria or urinary frequency MUSCULOSKELETAL- denies deformity or pain SKIN - denies rashes or new changed skin lesions NEUROLOGIC - denies focal weakness or sensory changes HEMATOLOGIC/LYMPHATIC - denies easy bruising or lymphadenopathy. PFS ED PFSH: Social History Smoking and tobacco status: current every day smoker Physical Exam Narrative: EXAM NARRATIVE: GENERAL/CONSTITUTIONAL - well-appearing. No acute distress. [] Eyes - PERRL, no conjunctival injection ENMT - Atraumatic external nose and ears. Moist mucous membranes NECK - supple. trachea midline CARDIOVASCULAR - regular rate and rhythm. Peripheral pulses 2+ and equal RESPIRATORY -clear to auscultation bilaterally. No retractions or accessory muscle use. ABDOMEN/GI - Nontender/Nondistended. No tenderness to percussion or evidence of peritonitis MSK - Extremities without obvious deformity or tenderness to palpation SKIN - Warm, Dry NEURO - alert and appropriately oriented. strength and sensation intact. Moves all extremities equally. PSYCH - Appropriate mood and affect Course Vital Signs: Vital signs: Vital Signs Temperature 97.9 F 12/25/20 14:07 Pulse Rate 77 12/25/20 14:07 Respiratory Rate 15 12/25/20 14:07 Blood Pressure 177/92 12/25/20 14:07 Pulse Oximetry 96 12/25/20 14:07 MDM - General Adult Medical Records: Attestation: I reviewed the patient's medical records. Lab Data: Attestation: I reviewed the patient's lab results. Labs: Lab Results 12/25/20 Range/Units 14:10 POC Glucose 485 H (70-110) mg/dL Discharge Plan Discharge Prescriptions: No Action losartan 50 mg tablet 50 mg PO DAILY RF: 0 duloxetine 60 mg capsule,delayed release(DR/EC) 60 mg PO DAILY 30 Days Qty: 30 RF: 3 aspirin [Adult Aspirin Regimen] 81 mg tablet,delayed release (DR/EC) 81 mg PO DAILY RF: 0 multivitamin Tablet 1 tab PO DAILY RF: 0 Chantix 1 mg tablet 1 mg PO BID RF: 0 propranolol 60 mg capsule,extended release 24 hr 60 mg PO DAILY RF: 0 clopidogrel [Plavix] 75 mg tablet 75 mg PO DAILY RF: 0 metoprolol succinate 25 mg tablet extended release 24 hr 25 mg PO DAILY RF: 0 insulin asp prt-insulin aspart [Novolog Mix 70-30 U-100 Insuln] 100 unit/mL (70-30) solution 12 unit SUBCUT DAILY RF: 0 Toujeo Max U-300 SoloStar 300 unit/mL (3 mL) insulin pen 50 unit SUBCUT Q24H RF: 0 pregabalin 150 mg capsule 150 mg PO DAILY RF: 0 mupirocin 2 % ointment 1 applic TOPICAL BID Qty: 22 RF: 0 cetirizine 10 mg capsule 10 mg PO BID PRN (Reason: allergy symptoms) Qty: 60 RF: 0 Coding Level of Care Code ED Payroll Tax Specialist for Seun Parada
--- NOTE | 2020-12-25 16:03 | W.ED.GENADLT ---
HPI - General Adult General: Chief complaint: General Medical Stated complaint: stubbling, high bs Time Seen by Provider: 12/25/20 16:01 History of Present Illness: HPI narrative: Mr Ford is a 50-year-old gentleman with significant past medical history of alcohol use, severe vascular disease, and diabetes who presents to the emergency department due to concern over hyperglycemia and associated symptoms. The patient reports being at his baseline health though he has not compliant with his medication regimen for the past few days. Today, while at work, he was noted to be slurring his speech and off-balance at which point he was sent home. He checked his blood sugar was elevated so he decided to come to the hospital. He denies focal neurologic symptoms. He reports this is similar to prior DKA. He is a daily drinker and last drink was yesterday. Overall the course of symptoms has persisted. The intensity is moderate. He cannot think of any other specific exacerbating or alleviating factors. Review of Systems General: Reports: 10 or more systems reviewed and unremarkable except in HPI and below Narrative: CONSTITUTIONAL: denies fever, fatigue, weakness EYES - denies pain, denies loss of vision EARS - denies ear issues. NOSE - denies congestion or rhinorrhea. THROAT - denies sore throat or difficulty swallowing. CARDIOVASCULAR - denies chest pain and palpitations RESPIRATORY - denies shortness of breath and cough GASTROINTESTINAL - denies abdominal pain, no nausea vomiting, no changes in bowel habits GENITOURINARY - denies dysuria or urinary frequency MUSCULOSKELETAL- denies deformity or pain SKIN - denies rashes or new changed skin lesions NEUROLOGIC - denies focal weakness or sensory changes. See HPI. HEMATOLOGIC/LYMPHATIC - denies easy bruising or lymphadenopathy. [facility] ED PFSH: Social History Smoking and tobacco status: current every day smoker Physical Exam Narrative: EXAM NARRATIVE: GENERAL/CONSTITUTIONAL -chronically ill-appearing. No acute distress. Mildly disheveled Eyes - PERRL, no conjunctival injection ENMT - Atraumatic external nose and ears. Moist mucous membranes NECK - supple. trachea midline CARDIOVASCULAR - regular rate and rhythm. Peripheral pulses 2+ and equal RESPIRATORY -clear to auscultation bilaterally. No retractions or accessory muscle use. ABDOMEN/GI - Nontender/Nondistended. No tenderness to percussion or evidence of peritonitis MSK - Extremities without obvious deformity or tenderness to palpation SKIN - Warm, Dry NEURO - alert and appropriately oriented. strength and sensation intact. Moves all extremities equally. Cranial nerves II through XII intact. Coordination intact. Gait intact. Speech is mildly difficult to understand with unclear baseline PSYCH -patient has odd affect, no SI or HI. Course ED course: - Patient was seen and evaluated by me at bedside - Patient placed on cardiac monitors, IV access obtained - Initial evaluation notable for no focal neurologic deficits. The patient has somewhat difficult to understand speech though it is unclear whether this is primary neurologic. Odd affect present - Labs and imaging obtained and reviewed - Labs notable for no acute hematologic abnormality to explain the patient's symptoms. Patient appears to have mild chronic hyponatremia though this is mildly worse than baseline, IV fluids ordered. Hyperglycemia present without evidence of DKA. - Imaging notable for no acute intracranial hemorrhage or mass. - Upon reassessment patient similar. Patient presents a challenging case and clinical decision making is complicated. Initially I expected the patient to be in DKA based on overall presentation and clinical history however in the absence of that additional imaging ordered to identify further potential neural pathology in the context of symptoms unknown arterial disease. CTA without evidence of acute changes. - Upon serial reexamination after treatment the patient was improved - Based on patient history, evaluation, labs, and imaging as interpreted the most likely cause of the patient's condition is unclear, potentially multifactorial. The patient does have a history of alcohol abuse and perhaps this is related to overall affect, which is likely baseline for patient. He subjectively feels normal. - The results of ED evaluation were discussed with the patient including prescriptions and/or symptomatic cares including appropriate and responsible use, followup plan, and return precautions. The patient verbalized understanding and felt safe for discharge. - Patient discharged in satisfactory condition. Vital Signs: Vital signs: Vital Signs Temperature 97.9 F 12/25/20 14:07 Pulse Rate 67 12/25/20 19:14 Respiratory Rate 18 12/25/20 19:14 Blood Pressure 207/109 12/25/20 19:14 Pulse Oximetry 98 12/25/20 19:14 MDM - General Adult Medical Records: Attestation: I reviewed the patient's medical records. Lab Data: Attestation: I reviewed the patient's lab results. Labs: Lab Results 12/25/20 12/25/2021 Range/Units 14:10 16:25 16:25 WBC 7.2 (4.0-10.0) 10^3/ uL RBC 4.59 (4.1-5.3) 10^6/u L Hgb 14.1 (11.7-16.6) g/dL Hct 41.1 L (42.0-52.0) % MCV 89.5 (80-94) fl MCH 30.7 (28.0-34.0) pg MCHC 34.3 (30.0-36.0) g/dL RDW 12.7 (12.1-15.1) % Plt Count 251 (130-400) 10^3/c mm MPV 10.9 H (7.4-10.4) fL Neut % (Auto) 64.9 % Lymph % (Auto) 19.9 % Morrison % (Auto) 8.8 % Eos % (Auto) 4.8 % Baso % (Auto) 1.3 % Neut # (Auto) 4.65 (1.8-7.7) 10^3/u L Lymph # (Auto) 1.4 (0.8-4.8) 10^3/u L Morrison # (Auto) 0.6 (0.2-0.9) 10^3/u L Eos # (Auto) 0.3 (0.0-0.8) 10^3/u L Baso # (Auto) 0.1 (0.0-0.1) 10^3/u L Nucleated RBC % (a uto) 0 % Nucleated RBCs # 0.0 /100WBC Sodium 131 L (136-145) mmol/L Potassium 4.1 (3.5-5.1) mmol/L Chloride 92 L (98-107) mmol/L Carbon Dioxide 26 (22-29) mmol/L Anion Gap 17.1 (5-19) BUN 17 (6-20) mg/dL Creatinine 0.9 (0.7-1.2) mg/dL GFR Calculation 88.6 L (90-130) mL/min Glucose 366 H (65-115) mg/dL POC Glucose 485 H (70-110) mg/dL Calculated Osmolal ity 288 (285-295) mOsm/k g Calcium 9.5 (8.5-10.5) mg/dL Total Bilirubin 0.4 (0.15-1.2) mg/dL AST 8 (0-40) U/L ALT 11 (0-41) U/L Alkaline Phosphata se 67 (40-130) IU/L Total Protein 7.1 (6.6-8.7) g/dL Albumin 4.4 (3.5-5.2) g/dL Globulin 2.7 (1.3-4.6) g/dL TSH 0.50 (0.27-4.20) uIU/ mL Urine Color (Yellow) Urine Appearance (CLEAR) Urine pH (5-7) Ur Specific Gravit y (1.005-1.030) Urine Protein (Negative) Urine Glucose (UA) (Normal) Urine Ketones (Negative) Urine Blood (Negative) Urine Nitrate (Negative) Urine Bilirubin (Negative) Urine Urobilinogen (Negative) mg/dL Ur Leukocyte Sherrell ase (Negative) Ethyl Alcohol < 10 (0-10) mg/dL Serum Ketones (Negative) 12/25/20 12/25/20 12/25/20 Range/Units 16:25 17:02 18:10 WBC (4.0-10.0) 10^3/ uL RBC (4.1-5.3) 10^6/u L Hgb (11.7-16.6) g/dL Hct (42.0-52.0) % MCV (80-94) fl MCH (28.0-34.0) pg MCHC (30.0-36.0) g/dL RDW (12.1-15.1) % Plt Count (130-400) 10^3/c mm MPV (7.4-10.4) fL Neut % (Auto) % Lymph % (Auto) % Morrison % (Auto) % Eos % (Auto) % Baso % (Auto) % Neut # (Auto) (1.8-7.7) 10^3/u L Lymph # (Auto) (0.8-4.8) 10^3/u L Morrison # (Auto) (0.2-0.9) 10^3/u L Eos # (Auto) (0.0-0.8) 10^3/u L Baso # (Auto) (0.0-0.1) 10^3/u L Nucleated RBC % (a uto) % Nucleated RBCs # /100WBC Sodium (136-145) mmol/L Potassium (3.5-5.1) mmol/L Chloride (98-107) mmol/L Carbon Dioxide (22-29) mmol/L Anion Gap (5-19) BUN (6-20) mg/dL Creatinine (0.7-1.2) mg/dL GFR Calculation (90-130) mL/min Glucose (65-115) mg/dL POC Glucose 399 H (70-110) mg/dL Calculated Osmolal ity (285-295) mOsm/k g Calcium (8.5-10.5) mg/dL Total Bilirubin (0.15-1.2) mg/dL AST (0-40) U/L ALT (0-41) U/L Alkaline Phosphata se (40-130) IU/L Total Protein (6.6-8.7) g/dL Albumin (3.5-5.2) g/dL Globulin (1.3-4.6) g/dL TSH (0.27-4.20) uIU/ mL Urine Color Straw (Yellow) Urine Appearance Clear (CLEAR) Urine pH 5 (5-7) Ur Specific Gravit y 1.010 (1.005-1.030) Urine Protein Neg (Negative) Urine Glucose (UA) 4+ H (Normal) Urine Ketones Negative (Negative) Urine Blood Neg (Negative) Urine Nitrate Negative (Negative) Urine Bilirubin Neg (Negative) Urine Urobilinogen Norm (Negative) mg/dL Ur Leukocyte Sherrell ase Negative (Negative) Ethyl Alcohol (0-10) mg/dL Serum Ketones Negative (Negative) Discharge Plan Discharge Patient Disposition: Home Clinical Impression: Hyperglycemia due to type 2 diabetes mellitus, Altered mental status Condition: Stable Prescriptions: No Action losartan 50 mg tablet 50 mg PO DAILY RF: 0 duloxetine 60 mg capsule,delayed release(DR/EC) 60 mg PO DAILY 30 Days Qty: 30 RF: 3 aspirin [Adult Aspirin Regimen] 81 mg tablet,delayed release (DR/EC) 81 mg PO DAILY RF: 0 multivitamin Tablet 1 tab PO DAILY RF: 0 Chantix 1 mg tablet 1 mg PO BID RF: 0 propranolol 60 mg capsule,extended release 24 hr 60 mg PO DAILY RF: 0 clopidogrel [Plavix] 75 mg tablet 75 mg PO DAILY RF: 0 metoprolol succinate 25 mg tablet extended release 24 hr 25 mg PO DAILY RF: 0 Toujeo Max U-300 SoloStar 300 unit/mL (3 mL) insulin pen 50 unit SUBCUT Q24H RF: 0 pregabalin 150 mg capsule 150 mg PO DAILY RF: 0 Humalog KwikPen Insulin 100 unit/mL insulin pen 8 unit SUBCUT TID RF: 0 Discharge Orders: Discharge ED (Routine); Ordered 12/25/20 Ordered By: Tacos Calderón Referrals: Jorje Watters MD [Primary Care Provider] - Discharge Diet: Diabetic Discharge Activity: Resume usual activity Patient Instructions: Abuse of Alcohol (ED), Altered Mental Status (ED), Diabetic Hyperglycemia (ED) Activity Restrictions/Additional Instructions: Thank you for visiting the emergency department. You were seen and evaluated for concern over DKA. We did not find evidence of diabetic ketoacidosis however you were noted to be hyperglycemic which improved with fluids. The exact cause of your symptoms is somewhat unclear however imaging was similar to prior. We are pleased that you have improved upon reassessment. Please follow-up with your primary care provider. Please be compliant with the medication regimen. I am concerned about your level of alcohol use, we recommend responsible use of alcohol Coding Level of Care Code ED Director Skills for Seun Parada
--- NOTE | 2020-12-25 16:09 | CTR_ITS ---
PROCEDURE INFORMATION: Exam: CT Head Without Contrast Exam date and time: 12/25/2020 4:09 PM Age: 50 years old Clinical indication: Walking, difficulty; Patient HX: Stumbling; Additional info: Gait problems TECHNIQUE: Imaging protocol: Computed tomography of the head without contrast. Radiation optimization: All CT scans at this facility use at least one of these dose optimization techniques: automated exposure control; mA and/or kV adjustment per patient size (includes targeted exams where dose is matched to clinical indication); or iterative reconstruction. COMPARISON: CT head wo con* [id number] 04/06/2019 9:36 PM RADIATION DOSE METRICS: Total DLP (mGy-cm): 884.41 FINDINGS: Brain: Mild atrophy and mild white matter chronic microvascular changes are noted. No hemorrhage or evidence of acute infarction is seen. Cerebral ventricles: No ventriculomegaly. Paranasal sinuses: Visualized sinuses are unremarkable. No fluid levels. Mastoid air cells: Visualized mastoid air cells are well aerated. Bones/joints: No acute fracture. Soft tissues: Unremarkable. CT/CT head wo con* [id number] IMPRESSION: No acute intracranial abnormality. Radiation Dose CTDIVOL = (mGy): DLP = 884.41 (mGy-cm)
[2020-12-25 16:48] LABS: Basophils # 0.1 10^3/uL (0.0-0.1); Basophils % 1.3 %; Eosinophils # 0.3 10^3/uL (0.0-0.8); Eosinophils % 4.8 %; Hematocrit 41.1 % (42.0-52.0); Hemoglobin 14.1 g/dL (11.7-16.6); Lymphocytes # 1.4 10^3/uL (0.8-4.8); Lymphocytes % 19.9 %; Mean Corpuscular HGB Conc 34.3 g/dL (30.0-36.0); Mean Corpuscular Hemoglobin 30.7 pg (28.0-34.0); Mean Corpuscular Volume 89.5 fl (80-94); Mean Platelet Volume 10.9 fL (7.4-10.4); Monocytes # 0.6 10^3/uL (0.2-0.9); Monocytes % 8.8 %; Neutrophils # 4.65 10^3/uL (1.8-7.7); Neutrophils % 64.9 %; Nucleated Red Blood Cells % 0 %; Platelet Count 251 10^3/cmm (130-400); Red Blood Count 4.59 10^6/uL (4.1-5.3); Red Cell Distribution Width 12.7 % (12.1-15.1); White Blood Count 7.2 10^3/uL (4.0-10.0)
[2020-12-25 17:02] LABS: Ketone (Acetest) Serum Negative (Negative)
[2020-12-25 17:06] LABS: Glucose Point of Care 399 mg/dL (70-110)
[2020-12-25 17:23] LABS: Alanine Aminotransferase 11 U/L (0-41); Albumin Level 4.4 g/dL (3.5-5.2); Alkaline Phosphatase 67 IU/L (40-130); Anion Gap 17.1 (5-19); Aspartate Amino Transferase 8 U/L (0-40); Blood Urea Nitrogen 17 mg/dL (6-20); Calcium 9.5 mg/dL (8.5-10.5); Carbon Dioxide 26 mmol/L (22-29); Chloride 92 mmol/L (98-107); Globulin 2.7 g/dL (1.3-4.6); Glomerular Filtration Rate 88.6 mL/min (90-130); Glucose 366 mg/dL (65-115); Osmolality Calculated 288 mOsm/kg (285-295); Potassium 4.1 mmol/L (3.5-5.1); Sodium 131 mmol/L (136-145); Total Bilirubin 0.4 mg/dL (0.15-1.2); Total Protein 7.1 g/dL (6.6-8.7)
[2020-12-25 17:26] LABS: Alcohol Level < 10 mg/dL (0-10)
--- NOTE | 2020-12-25 17:28 | CTR_ITS ---
PROCEDURE INFORMATION: Exam: CT Angiography Head With Contrast, Arteriography Exam date and time: 12/25/2020 5:28 PM Age: 50 years old Clinical indication: Speech disturbance; Slurred speech; Additional info: Speech and balance changes TECHNIQUE: Imaging protocol: Computed tomography angiography of the head with contrast. Exam focused on the arteries. 3D rendering (Not supervised by radiologist): MIP and/or 3D reconstructed images were created by the technologist. Radiation optimization: All CT scans at this facility use at least one of these dose optimization techniques: automated exposure control; mA and/or kV adjustment per patient size (includes targeted exams where dose is matched to clinical indication); or iterative reconstruction. Contrast material: OMNI 350; Contrast volume: 95 ml; Contrast route: INTRAVENOUS (IV); COMPARISON: CTA Head/Neck [id number] 04/06/2019 9:39 PM RADIATION DOSE METRICS: Total DLP (mGy-cm): 2403.3 FINDINGS: ANTERIOR CIRCULATION: Right internal carotid artery: Calcified plaque causes moderate stenosis of the right ICA. No aneurysm. Right middle cerebral artery: Unremarkable. No occlusion or significant stenosis. No aneurysm. Right anterior cerebral artery: Unremarkable. No occlusion or significant stenosis. No aneurysm. Left internal carotid artery: Calcified plaque causes moderate stenosis of the left ICA. No aneurysm. Left middle cerebral artery: Unremarkable. No occlusion or significant stenosis. No aneurysm. Left anterior cerebral artery: Unremarkable. No occlusion or significant stenosis. No aneurysm. POSTERIOR CIRCULATION: Right vertebral artery: Unremarkable. No occlusion or significant stenosis. No aneurysm. Left vertebral artery: Atherosclerotic plaque causes mild stenosis of the terminal left vertebral artery Basilar artery: Unremarkable. No occlusion or significant stenosis. No aneurysm. Right posterior cerebral artery: Unremarkable. No occlusion or significant stenosis. No aneurysm. Left posterior cerebral artery: Unremarkable. No occlusion or significant stenosis. No aneurysm. IMPRESSION: 1. Moderate stenosis of bilateral ICAs. 2. Mild stenosis of the terminal left vertebral artery. PROCEDURE INFORMATION: Exam: CT Angiography Neck With Contrast Exam date and time: 12/25/2020 5:28 PM Age: 50 years old Clinical indication: Speech disturbance; Slurred speech; Additional info: Speech and balance changes TECHNIQUE: Imaging protocol: Computed tomography angiography of the neck with contrast. 3D rendering (Not supervised by radiologist): MIP and/or 3D reconstructed images were created by the technologist. Radiation optimization: All CT scans at this facility use at least one of these dose optimization techniques: automated exposure control; mA and/or kV adjustment per patient size (includes targeted exams where dose is matched to clinical indication); or iterative reconstruction. Contrast material: OMNI 350; Contrast volume: 95 ml; Contrast route: INTRAVENOUS (IV); COMPARISON: CTA Head/Neck [id number] 04/06/2019 9:39 PM RADIATION DOSE METRICS: Total DLP (mGy-cm): 2403.3 FINDINGS: Right common carotid artery: Mild stenosis of the distal right common carotid artery is appreciated. Right internal carotid artery: Mixed atherosclerotic plaque causes moderate stenosis of the right ICA origin. Mild stenosis of the distal extracranial right ICA is also appreciated. Right external carotid artery: No occlusion or stenosis of the origin. Left common carotid artery: Atherosclerotic plaque and small plaque ulceration or present in the left common carotid artery origin. Mild stenosis of the left common carotid artery origin is noted. Mild stenosis of the distal left common carotid artery is also seen. Left internal carotid artery: Mixed atherosclerotic plaque causes mild stenosis of the left ICA origin, and the mid and distal extracranial left ICA. Left external carotid artery: No occlusion or stenosis of the origin. Right vertebral artery: No stenosis. No dissection or occlusion. Left vertebral artery: Calcified plaque causes mild stenosis of the left vertebral artery origin. The left vertebral artery is otherwise patent. Soft tissues: Normal. No significant soft tissue swelling. Bones/joints: No acute fracture. CT/CT angio headneck* [id number] IMPRESSION: 1. Moderate stenosis of the right ICA origin. 2. Mild stenosis of the bilateral common carotid arteries, the left ICA, and left vertebral artery origin REFERENCES: NASCET CRITERIA. The degree of internal carotid artery stenosis is based on NASCET criteria. Normal is no stenosis. Mild is less than 50% stenosis. Moderate is 50-69% stenosis. Severe is 70% to 99% stenosis. Total occlusion is no detectable patent lumen. Radiation Dose CTDIVOL = (mGy): DLP = 2403.3~2403.3 (mGy-cm)
[2020-12-25] MEDS: iohexol 350 mg/mL 100 mL Btl IV (17:45)
[2020-12-25 18:00] VITALS: BP 195/91; RESP 18
[2020-12-25] MEDS: sodium chloride 0.9% 1,000 ML 999 ML IV (18:12)
[2020-12-25 18:14] LABS: Add Urine Microscopic? NO; Charge for UA Resulting for Rev
[2020-12-25] MEDS: folic acid 1 mg Tablet PO (18:15)
[2020-12-25 18:17] LABS: Glucose Urine UA 4+ (Normal); Protein Urine Neg (Negative); Urine Appearance Clear (CLEAR); Urine Color Straw (Yellow); pH Urine 5 (5-7)
[2020-12-25 18:18] LABS: Bilirubin Urine Neg (Negative); Blood Urine Neg (Negative); Ketones Urine Negative (Negative); Leukocyte Esterase Urine Negative (Negative); Nitrate Urine Negative (Negative); Urobilinogen Urine Norm (Negative)
[2020-12-25 18:31] VITALS: BP 195/87; PULSE 63; RESP 18; O2SAT 96
[2020-12-25] MEDS: cyclobenzaprine 10 mg Tablet PO (18:59)
[2020-12-25] MEDS: losartan 50 mg Tablet PO (18:59)
[2020-12-25 19:00] VITALS: BP 200/98; PULSE 68; RESP 17; O2SAT 98
[2020-12-25 19:14] VITALS: BP 207/109; PULSE 67; RESP 18; O2SAT 98
[2020-12-28 15:17] LABS: Osmolality Serum 294 mOsm/kg (278-305)
== END 2020-12-25 19:18 | disposition home or self-care (01) ==
PROVIDERS: Emergency Provider Emergency Medicine; PCP Family Medicine
DX: E11.65 Type 2 diabetes mellitus with hyperglycemia (principal); R41.82 Altered mental status, unspecified; E87.1 Hypo-osmolality and hyponatremia; F17.200 Nicotine dependence, unspecified, uncomplicated; Z79.4 Long term (current) use of insulin
CPT/HCPCS: 36416; 70450; 70496; 70498; 80053; 80307; 81003; 82009; 82962; 83930; 84443; 85025; 96361; 96374; 99284; J3411; J7030; Q9967

== ENCOUNTER → 2021-01-07 10:19 | Outpatient (BNVA) | payer MEDICARE, MEDICAID, SELFPAY | PROVIDERS: PCP Family Medicine; Visit Provider Psychiatry & Neurology Psychiatry | DX: F32.9 Major depressive disorder, single episode, unspecified (principal) | CPT/HCPCS: 99214 ==

== ENCOUNTER 2021-01-24 11:34 | Emergency (ER) | payer MEDICARE, SELFPAY ==
[2021-01-24 11:44] VITALS: BP 127/88; PULSE 88; RESP 18; TEMP 36.6; O2SAT 98; BMI 24.4
[2021-01-24 11:54] VITALS: BP 127/88; PULSE 92; RESP 18; O2SAT 99
--- NOTE | 2021-01-24 11:57 | USR_ITS ---
PROCEDURE INFORMATION: Exam: US Duplex Left Lower Extremity Arteries Or Arterial Bypass Grafts Exam date and time: 01/24/2021 11:57 AM Age: 50 years old Clinical indication: Other: Small amount of bleeding left groin area; Prior surgery; Surgery date: <1 month; Surgery type: Left femoral bypass graft; Additional info: S/P femoral bypass, small amount of bleeding today TECHNIQUE: Imaging protocol: Left Real-time duplex scan of the arteries or arterial bypass grafts of the left lower extremity with 2-D vaughn scale, color Doppler flow and spectral waveform analysis. Images documented and saved. COMPARISON: CT angio abd aorta runof [id number] 11/15/2020 4:49 PM FINDINGS: Graft on the left is patent with monophasic flow particularly distally about the knee. Monophasic flow within the posterior tibial artery and dorsalis pedis artery. This is likely an iliac - infra genicular bypass graft and is patent.. No appreciable flow within the [place] common femoral artery. Hypoechoic region in the left thigh measuring approximately 6.3 x 4.5 x 2.3 cm. This adjacent to the graft. Likely hematoma. US/[place] [id number] IMPRESSION: Hypoechoic region in the left thigh measuring approximately 6.3 x 4.5 x 2.3 cm. This adjacent to the graft. Likely hematoma. Consider CT. Patent graft. See above. Monophasic flow.
--- NOTE | 2021-01-24 12:46 | W.ED.WOUNDLC ---
HPI - Wound/Laceration General: Chief Complaint: Wound/Laceration Stated Complaint: SURGERY 03 (FEMORAL ARTERY), BLEEDING AT GROIN Time Seen by Provider: 01/24/21 11:45 History of Present Illness: HPI narrative: This patient is a 50 year old male presenting with concerns over bleeding from his surgery site in the left groin. He had a femoral artery bypass in [place] at [facility] by Dr. Dawn on 01/15. He has been doing well until this morning when he sat down on the toilet and noticed some blood dripping from the incision in the left groin. He stopped it with some light pressure and it hasn't started again. He is on aspirin and clopidogrel. He has been having some swelling in the left leg since the surgery - no change today. No fevers. No increased pain or swelling at the incision site. He has charles in place. His follow up appointment is 02/02. Onset (ago): hour(s) (1) Body four view annotation: 1. Associated symptoms: Denies chills, fever(s), nausea or vomiting Review of Systems General: Reports: 10 or more systems reviewed and unremarkable except in HPI and below Const: Denies: fever(s), chills, fatigue or malaise Eyes: Denies: change in vision ENMT: Denies: odynophagia Card: Denies: chest pain Resp: Denies: dyspnea, productive cough or non-productive cough GI: Denies: abdominal pain, nausea or vomiting : Denies: flank pain Musc: Denies: neck pain or back pain Skin/Breast: Denies: rash Neuro: Denies: headache(s), numbness in extremities or weakness in extremities Nolan/Lymph: Denies: easy bruising or easy bleeding PFS ED PFSH: Medical History Psychiatric care Social History Smoking and tobacco status: current every day smoker Physical Exam Const: COMMON NORMALS: no acute distress, patient oriented x3, no limitations and alert GENERAL APPEARANCE: cooperative and comfortable HENMT: HEAD & SCALP: normal to inspection FACE & SINUS: normal facial exam Eye: GENERAL EYE: appearance normal, both eyes and all related structures Neck/C-Spine: COMMON NORMALS: supple, no meningeal signs and no JVD Chest: COMMONS NORMALS: normal inspection of the chest Resp: COMMON NORMALS: normal respiratory effort, No use of accessory muscles and clear to auscultation bilaterally AUSCULTATION: clear to auscultation bilaterally Cardio: COMMON NORMALS: no JVD, regular rate, regular rhythm and No murmurs present (Cardio) RATE: regular rate RHYTHM: regular rhythm GI: COMMON NORMALS: Normal to inspection, nondistended, normoactive bowel sounds present, Soft to palpation and non-tender INSPECTION: Yes normal to inspection AUSCULTATION: Yes normoactive bowel sounds PALPATION: Yes Soft to palpation : MALE GROIN/PERINEUM EXAM: No erythema and Yes other (left groin with surgical incision - healing, charles in place, no bleeding) Back/Pelvis: COMMON NORMALS: thoracic and lumbar spine normal to inspection Extremity: COMMON NORMALS: normal to inspection Neuro: COMMON NORMALS: patient oriented x3, moves all extremities, no focal motor deficits and no sensory deficits noted SENSORIUM/ORIENTATION: Yes alert MENINGEAL SIGNS: Yes no meningeal signs Psych: COMMON NORMALS: mental status grossly normal, cooperative and normal affect Skin: COMMON NORMALS: no rashes or lesions noted and turgor normal GENERAL SKIN EXAM: no rashes or lesions noted and turgor normal Course ED course: Patient with no bleeding while in the ED. US showed a hematoma along the vessel but a patent graft. Discussed with Dr. Dawn and he agrees with conitnued outpatient management and follow up as planned. This was discussed with the patient and he understands. Vital Signs: Vital signs: Vital Signs Temperature 97.9 F 01/24/21 11:44 Pulse Rate 80 01/24/21 15:02 Respiratory Rate 16 01/24/21 15:02 Blood Pressure 140/76 01/24/21 15:02 Pulse Oximetry 95 01/24/21 15:02 MDM - Wound/Laceration MDM Narrative: Medical decision making narrative: Minimal bleeding at the incision site. US ruled out pseudoaneurysm - shows a hematoma. Clinically no suggestion of infection or dehisence. Outpatient follow up as planned. Discharge Plan Discharge Patient Disposition: Home Clinical Impression: Post-op bleeding Condition: Stable Prescriptions: No Action losartan 50 mg tablet 50 mg PO DAILY RF: 0 duloxetine 60 mg capsule,delayed release(DR/EC) 60 mg PO DAILY 30 Days Qty: 30 RF: 3 aspirin [Adult Aspirin Regimen] 81 mg tablet,delayed release (DR/EC) 81 mg PO DAILY RF: 0 multivitamin Tablet 1 tab PO DAILY RF: 0 Chantix 1 mg tablet 1 mg PO BID RF: 0 propranolol 60 mg capsule,extended release 24 hr 60 mg PO DAILY RF: 0 clopidogrel [Plavix] 75 mg tablet 75 mg PO DAILY RF: 0 metoprolol succinate 25 mg tablet extended release 24 hr 25 mg PO DAILY RF: 0 Toujeo Max U-300 SoloStar 300 unit/mL (3 mL) insulin pen 50 unit SUBCUT Q24H RF: 0 pregabalin 150 mg capsule 150 mg PO DAILY RF: 0 Humalog KwikPen Insulin 100 unit/mL insulin pen 8 unit SUBCUT TID RF: 0 Discharge Orders: Discharge ED (Routine); Ordered 01/24/21 Ordered By: Radha Munguia Referrals: BALBINA RICKETTS AGNP [Primary Care Provider] - Isiah Dawn [Referring] - Discharge Diet: Usual diet Discharge Activity: Limit activity as instructed Patient Instructions: Opioid Safety Activity Restrictions/Additional Instructions: Follow up with Dr. Dawn as scheduled. If you have further episodes of bleeding that stops easily - like it did today - you do not need to return to the ED. For more bleeding, call Dr. Dawn's office for direction or return to the ED. Coding Level of Care Code ED Belt Press Operator for Seun Fwchelsey Exam Comprehensive
[2021-01-24 13:10] VITALS: BP 154/81; PULSE 79; RESP 18; O2SAT 99
[2021-01-24 15:02] VITALS: BP 140/76; PULSE 80; RESP 16; O2SAT 95
[2021-01-24 16:03] VITALS: BP 141/76; PULSE 77; RESP 16; O2SAT 97
== END 2021-01-24 16:03 | disposition home or self-care (01) ==
PROVIDERS: Emergency Provider Emergency Medicine; PCP Nurse Practitioner
DX: I97.620 Postprocedural hemorrhage of a circulatory system organ or structure following other procedure (principal); Z79.02 Long term (current) use of antithrombotics/antiplatelets; Z79.82 Long term (current) use of aspirin; Z79.4 Long term (current) use of insulin; F17.210 Nicotine dependence, cigarettes, uncomplicated
CPT/HCPCS: 93926; 99283

== ENCOUNTER → 2021-04-06 14:12 | Outpatient (BNVA) | payer MEDICARE, MEDICAID, SELFPAY | PROVIDERS: PCP Nurse Practitioner; Visit Provider Psychiatry & Neurology Psychiatry | DX: F32.9 Major depressive disorder, single episode, unspecified (principal) | CPT/HCPCS: 99214 ==

== ENCOUNTER 2021-06-06 14:55 | Emergency (ER) | payer MEDICARE, SELFPAY ==
[2021-06-06 15:00] VITALS: BP 167/81; PULSE 96; RESP 18; TEMP 36.6; O2SAT 97; BMI 23.7
--- NOTE | 2021-06-06 15:17 | ED_ITS ---
HPI - General Adult General: Chief complaint: General Medical Stated complaint: low bs Time Seen by Provider: 06/06/21 15:10 History of Present Illness: HPI narrative: Patient is a 51-year-old male with history of alcohol use dependence, vascular disease, type 1 diabetes with glucose monitor who presents emergency for concerns of glycemia. Patient tells me this morning, he took about 56 units of Lantus subcu and 22 units of lispro subcu. However he did not get a chance to eat this morning. Around 30 minutes complaint, patient was noted to have a glucose of 45. Report feeling lightheaded but still functional at this time. Patient then took 6 sugar tablets after. Patient's glucose in the emergency room initially was 62 now rising to 85. Patient has acute 15-minute glucose checks with his glucose monitor. Denies taking any other medicine including metformin, sulfonylurea, or other medicine. Patient has no complaints of chest pain, shortness breath, palpitation, lightheadedness, nausea/vomiting, diarrhea, melena/anesthesia, abdominal pain, urinary complaints Onset: earlier today Duration:3-5 hrs Location:home Severity:moderate/severe Associated symptoms: Deny chest pain, dyspnea, nausea, rash, palpitations or vomiting Review of Systems Const: Reports: fatigue and other (+light-headedness); Denies: fever(s) or chills Eyes: Denies: change in vision ENMT: Denies: mouth pain Card: Denies: chest pain or palpitations Resp: Denies: dyspnea or non-productive cough GI: Denies: abdominal pain, nausea, vomiting or diarrhea : Denies: dysuria Musc: Denies: extremity pain Skin/Breast: Denies: rash or new lesions Neuro: Denies: weakness in extremities Psych: Reports: other (Normal mood) Nolan/Lymph: Denies: easy bruising PFSH ED PFSH: Medical History (Updated 06/06/21 @ 15:21 by El Allen MD) Diabetes Hypertension Psychiatric care PVD (peripheral vascular disease) Social History (Updated 06/06/21 @ 15:21 by El Allen MD) Smoking and tobacco status: current every day smoker Alcohol intake: current Substance/Drug Use: never Physical Exam Const: COMMON NORMALS: alert HENMT: COMMON NORMALS: atraumatic HEAD & SCALP: atraumatic MOUTH: moist mucous membranes not abnormal Eye: COMMON NORMALS: EOMs intact bilaterally and conjunctivae normal CONJUNCTIVA: Yes conjunctivae normal Neck/C-Spine: COMMON NORMALS: full ROM and supple Resp: COMMON NORMALS: normal respiratory effort and clear to auscultation bilaterally AUSCULTATION: clear to auscultation bilaterally Cardio: COMMON NORMALS: regular rate RATE: regular rate GI: COMMON NORMALS: Soft to palpation and non-tender PALPATION: Yes Soft to palpation Extremity: COMMON NORMALS: full ROM Neuro: SENSORIUM/ORIENTATION: Yes alert MOTOR EXAM: No Abnormal motor strength present and Other motor observations present (no focal motor deficits) Psych: COMMON NORMALS: speech normal SPEECH: Yes normal speech MOOD & AFFECT: Yes euthymic mood Course Vital Signs: Vital signs: Vital Signs Temperature 97.8 F 06/06/21 15:00 Pulse Rate 86 06/06/21 16:23 Respiratory Rate 16 06/06/21 16:23 Blood Pressure 176/96 06/06/21 16:23 Pulse Oximetry 95 06/06/21 16:23 MDM - General Adult MDM Narrative: Medical decision making narrative: 51-year-old male with history of type 1 diabetes presenting to the emergency room for evaluation of hypoglycemia. On exam, patient has no focal finding. Initial glucose on arrival of 60s in triage did improve on bedside to 70s and now to 115 without any intervention in the ED. Patient was observed for 2 hours with glucose improvement. I have given patient follow up with our case packer to be seen by our outpatient endocrinology for recent episode of hypoglycemia. Patient aware of a call from our case packer to schedule for appointment(s) and verbalizes understanding of the importance of following up. Disposition: Discharge. Patient counseled regarding diagnostic impression, treatment plan. Patient given ED strict return precautions to return for continuation, worsening, or development of new symptoms. Instructed to f/u w/ PCP and endocrinology regarding symptoms today. Patient verbalized understanding. Discharge Plan Discharge Patient Disposition: Home Clinical Impression: Hypoglycemia, Light headedness Condition: Stable Prescriptions: No Action losartan 50 mg tablet 50 mg PO DAILY RF: 0 ezetimibe 10 mg tablet 10 mg PO DAILY RF: 0 duloxetine 60 mg capsule,delayed release(DR/EC) 60 mg PO DAILY 30 Days Qty: 30 RF: 3 aspirin [Adult Aspirin Regimen] 81 mg tablet,delayed release (DR/EC) 81 mg PO DAILY RF: 0 multivitamin Tablet 1 tab PO DAILY RF: 0 propranolol 60 mg capsule,extended release 24 hr 60 mg PO DAILY RF: 0 clopidogrel [Plavix] 75 mg tablet 75 mg PO DAILY RF: 0 Toujeo Max U-300 SoloStar 300 unit/mL (3 mL) insulin pen 56 unit SUBCUT Q24H RF: 0 pregabalin 150 mg capsule 150 mg PO BEDTIME RF: 0 Novolog Flexpen U-100 Insulin 100 unit/mL (3 mL) insulin pen See Rx Instructions .ROUTE .COMPLEX RF: 0 Discharge Orders: Discharge ED (Routine); Ordered 06/06/21 Ordered By: El Allen Referrals: BALBINA RICKETTS AGNP [Referring] - Discharge Diet: Advance as tolerated Discharge Activity: Increase activity as tolerated Patient Instructions: Hypoglycemia, Diabetes and Nutrition (ED) Activity Restrictions/Additional Instructions: Come back to the emergency room if your sugar is low again or have any new or concerning complaints. Our case packer will have you follow-up with a primary care provider in the next few days. You would be expected to have a phone call with our case packer who will put you on the schedule. Coding Level of Care Code ED Inspector Structural Bonding for Seun Fwd Exam Comprehensive
[2021-06-06 15:30] VITALS: BP 173/94; PULSE 89; RESP 16; O2SAT 96
--- NOTE | 2021-06-06 15:31 | PC.NURSE ---
BG 115
[2021-06-06 16:23] VITALS: BP 176/96; PULSE 86; RESP 16; O2SAT 95
--- NOTE | 2021-06-06 16:29 | PC.NURSE ---
BG 83
--- NOTE | 2021-06-06 16:57 | PC.NURSE ---
BG 107 pt provided sandwich, drink, pudding
--- NOTE | 2021-06-06 17:59 | PC.NURSE ---
225 physician notified at this time.
[2021-06-07 23:55] LABS: Glucose Point of Care 69 mg/dL (70-110)
--- NOTE | 2021-06-08 15:50 | DCPLANNER ---
nursing manager had message to schedule a follow up appointment for patient with endocrinology. nursing manager attempted to call patient regarding this referral, case finishing machine adjuster called phone number [phone], unable to speak with patient and unable to leave a voicemail.
== END 2021-06-06 18:32 | disposition home or self-care (01) ==
LOC: ER 15:20
PROVIDERS: Emergency Provider Emergency Medicine; PCP Nurse Practitioner Family
DX: E11.649 Type 2 diabetes mellitus with hypoglycemia without coma (principal); Z79.02 Long term (current) use of antithrombotics/antiplatelets; Z79.82 Long term (current) use of aspirin; Z79.4 Long term (current) use of insulin; I10 Essential (primary) hypertension; F17.210 Nicotine dependence, cigarettes, uncomplicated
CPT/HCPCS: 36416; 82962; 99283

== ENCOUNTER → 2021-06-29 09:01 | Outpatient (BNVA) | payer MEDICARE, SELFPAY | PROVIDERS: PCP Nurse Practitioner Family; Visit Provider Psychiatry & Neurology Psychiatry | DX: F32.9 Major depressive disorder, single episode, unspecified (principal) | CPT/HCPCS: 99214 ==

== ENCOUNTER → 2021-07-29 15:26 | Outpatient (BNVA) | payer OTHER, SELFPAY | PROVIDERS: PCP Nurse Practitioner Family; Visit Provider Psychiatry & Neurology Psychiatry | DX: F32.9 Major depressive disorder, single episode, unspecified (principal) | CPT/HCPCS: 80061; 83036 ==

== ENCOUNTER 2021-08-10 15:50 | Emergency (ER) | payer MEDICARE, SELFPAY ==
[2021-07-30 13:44] VITALS: BP 140/81; BMI 23.7
[2021-08-10 16:11] VITALS: BP 177/103; PULSE 78; RESP 18; TEMP 36.7; O2SAT 96; BMI 23.0
[2021-08-10 16:22] VITALS: BP 177/103; PULSE 78; RESP 16; O2SAT 96
--- NOTE | 2021-08-10 16:42 | ED_ITS ---
HPI - Dental/Oral General: Chief complaint: Dental/Oral Stated complaint: impacted tooth pain Time Seen by Provider: 08/10/21 16:21 History of Present Illness: Patient is a 51-year-old male comes to the ED with dental pain. Symptoms started earlier today. Dental pain is located on m ultiple teeth on right upper and lower jaw. He rates his pain currently a 3 out of 10. He has an appointment set up with his dentist on August 19. Associated symptoms: Denies fever(s) or odynophagia Review of Systems Const: Denies: fever(s), chills or fatigue Eyes: Denies: change in vision or eye discomfort ENMT: Reports: dental pain; Denies: throat pain, odynophagia, nasal discharge or nasal congestion Card: Denies: chest pain, palpitations, edema, swelling of feet/ankles, dyspnea on exertion or orthopnea Resp: Denies: dyspnea, productive cough or non-productive cough GI: Denies: abdominal pain, nausea, vomiting, diarrhea, constipation or hematochezia : Denies: flank pain, difficulty urinating, dysuria or hematuria Musc: Denies: neck pain, back pain or extremity swelling Skin/Breast: Denies: rash or new lesions Neuro: Denies: headache(s), numbness in extremities or weakness in extremities PFSH ED PFSH: Medical History Diabetes Hypertension Psychiatric care PVD (peripheral vascular disease) Social History Smoking and tobacco status: current every day smoker Alcohol intake: current Physical Exam Const: COMMON NORMALS: no acute distress, patient oriented x3 and alert GENERAL APPEARANCE: cooperative and comfortable HENMT: COMMON NORMALS: normocephalic HEAD & SCALP: normocephalic MOUTH: Normal oral and palatal mucosa present TEETH & GINGIVA: Yes caries (Patient has poor dentition and multiple dental caries throughout) and Yes poor dentition THROAT: posterior oropharynx normal and uvula midline Neck/C-Spine: COMMON NORMALS: supple GENERAL: Yes normal visual inspection Resp: COMMON NORMALS: normal respiratory effort, No retractions, No use of accessory muscles and clear to auscultation bilaterally AUSCULTATION: clear to auscultation bilaterally Cardio: COMMON NORMALS: regular rate, regular rhythm, S1 normal heart sound present, S2 normal heart sound present, No gallops present (Cardio), No clicks present (Cardio), No murmurs present (Cardio) and Peripheral pulses 2+ thr oughout RATE: regular rate RHYTHM: regular rhythm HEART SOUNDS: S1 normal heart sound present and S2 normal heart sound present PERIPHERAL PULSES: Peripheral pulses 2+ throughout GI: COMMON NORMALS: Normal to inspection, nondistended, normoactive bowel sounds present, Soft to palpation, non-tender and no masses PALPATION: Yes Soft to palpation : COMMON NORMALS: Yes no CVA tenderness BLADDER/KIDNEY EXAM: Yes no CVA tenderness Back/Pelvis: COMMON NORMALS: no CVA tenderness Extremity: COMMON NORMALS: normal to inspection Neuro: COMMON NORMALS: patient oriented x3 and moves all extremities SENSORIUM/ORIENTATION: Yes alert Skin: GENERAL SKIN EXAM: dry skin Course Vital Signs: Vital signs: Vital Signs Temperature 98.1 F 08/10/21 16:11 Pulse Rate 78 08/10/21 16:22 Respiratory Rate 16 08/10/21 16:22 Blood Pressure 177/103 08/10/21 16:22 Pulse Oximetry 96 08/10/21 16:22 [facility] - Dental/Oral Medical Decision Making Patient is a 51-year-old male comes to the ED with dental pain. Vitals are stable. He appears in no acute distress or pain. He has poor dentition and multiple dental caries throughout. He has an appointment set up with his dentist on August 19. Patient was discharged home with a prescription for clindamycin and naproxen for pain. Return to ED precautions given. Patient understood and agreed with plan. Discharge Plan Discharge Patient Disposition: Home Clinical Impression: Pain due to dental caries Condition: Stable Prescriptions: New clindamycin HCl 150 mg capsule 300 mg PO Q6H 7 Days Qty: 56 0RF EC-Naprosyn 500 mg tablet,delayed release (DR/EC) 500 mg PO BID PRN (Reason: pain) Qty: 20 0RF No Action losartan 50 mg tablet 50 mg PO DAILY 0RF ezetimibe 10 mg tablet 10 mg PO DAILY 0RF duloxetine 60 mg capsule,delayed release(DR/EC) 60 mg PO DAILY 30 Days Qty: 30 3RF aspirin [Adult Aspirin Regimen] 81 mg tablet,delayed release (DR/EC) 81 mg PO DAILY 0RF multivitamin Tablet 1 tab PO DAILY 0RF propranolol 60 mg capsule,extended release 24 hr 60 mg PO DAILY 0RF clopidogrel [Plavix] 75 mg tablet 75 mg PO DAILY 0RF Toujeo Max U-300 SoloStar 300 unit/mL (3 mL) insulin pen 56 unit SUBCUT Q24H 0RF pregabalin 150 mg capsule 150 mg PO BEDTIME 0RF Novolog Flexpen U-100 Insulin 100 unit/mL (3 mL) insulin pen See Rx Instructions .ROUTE .COMPLEX 0RF Rx Instructions: PER SLIDING SCALE Discharge Orders: Discharge ED (Routine); Ordered 08/10/21 Ordered By: Jeffrey Mathur Referrals: Karen Bagley APN [Primary Care Provider] - Discharge Diet: Regular Discharge Activity: Resume usual activity Patient Instructions: Dental Caries (Cavities) Activity Restrictions/Additional Instructions: Follow-up with dentist at your next scheduled appointment on August 19. Take me dications as prescribed. Return to the ER or your medical provider if condition worsens. Please read and understand discharge instructions. Thank you for choosing [facility] for your healthcare needs today. Please realize this is an emergency room and that we are providing you with a medical screening exam and this may not be complete and all inclusive of all the testing and or work up that you may need to determine your ailment or severity of your illness. It is very important that you follow up as instructed or that you return to the Emergency Department should you have concerns or if your condition changes or worsens in any way. Coding Level of Care Code ED Hvac Service Technician for Seun Parada Exam Comprehensive
[2021-08-10] MEDS: naproxen 500 mg Tablet PO (17:10)
== END 2021-08-10 17:17 | disposition home or self-care (01) ==
PROVIDERS: Emergency Provider Physician Assistant; PCP Nurse Practitioner Family
DX: K02.9 Dental caries, unspecified (principal); F17.200 Nicotine dependence, unspecified, uncomplicated; E11.51 Type 2 diabetes mellitus with diabetic peripheral angiopathy without gangrene; I10 Essential (primary) hypertension; Z79.4 Long term (current) use of insulin; Z79.02 Long term (current) use of antithrombotics/antiplatelets
CPT/HCPCS: 99283

== ENCOUNTER 2021-10-30 10:31 | Emergency (ER) | payer MEDICARE, MEDICAID, SELFPAY ==
[2021-07-30 13:44] VITALS: BP 140/81; BMI 23.7
[2021-10-30 10:49] VITALS: BP 164/84; PULSE 98; RESP 18; TEMP 36.6; O2SAT 95
--- NOTE | 2021-10-30 11:19 | ECG_ITS ---
[facility] Test Date: 2021-10-30 Pat Name: Jeffrey Ford Department: Room: Gender: Male Automotive Design Drafter: : 1970 Requested By: Jose Gandara Order Number: [id number] Kasi MD: Michelle Camarillo M.D. Measurements Intervals Woody Rate: 85 P: 68 AL: 138 QRS: 62 QRSD: 105 T: 117 QT: 361 QTc: 431 Interpretive Statements SINUS RHYTHM POSSIBLE LEFT ATRIAL ENLARGEMENT [-0.1mV P-WAVE IN V1/V2] ST DEVIATION AND MODERATE T-WAVE ABNORMALITY, CONSIDER LATERAL ISCHEMIA [-0.1+ mV T-WAVE IN I/aVL/V5/V6] Compared to ECG 11/15/2020 17:31:40 No significant changes Electronically Signed On 10-31-2021 13:04:07 CDT by Michelle Camarillo M.D. [id number]
[2021-10-30 11:42] LABS: Basophils # 0.1 10^3/uL (0.0-0.1); Basophils % 1.2 %; Eosinophils # 0.3 10^3/uL (0.0-0.8); Eosinophils % 4.2 %; Hematocrit 38.4 % (42.0-52.0); Hemoglobin 13.8 g/dL (11.7-16.6); Lymphocytes # 1.2 10^3/uL (0.8-4.8); Lymphocytes % 17.5 %; Mean Corpuscular HGB Conc 35.9 g/dL (30.0-36.0); Mean Corpuscular Hemoglobin 30.9 pg (28.0-34.0); Mean Corpuscular Volume 85.9 fl (80-94); Mean Platelet Volume 11.6 fL (7.4-10.4); Monocytes # 0.6 10^3/uL (0.2-0.9); Monocytes % 8.8 %; Neutrophils # 4.69 10^3/uL (1.8-7.7); Nucleated Red Blood Cells % 0 %; Platelet Count 209 10^3/cmm (130-400); Red Blood Count 4.47 10^6/uL (4.1-5.3); Red Cell Distribution Width 12.3 % (12.1-15.1); White Blood Count 6.9 10^3/uL (4.0-10.0)
[2021-10-30 12:17] LABS: Alanine Aminotransferase 12 U/L (0-41); Albumin Level 4.1 g/dL (3.5-5.2); Alkaline Phosphatase 79 IU/L (40-130); Anion Gap 20.8 (5-19); Aspartate Amino Transferase 8 U/L (0-40); Blood Urea Nitrogen 28 mg/dL (6-20); Calcium 9.3 mg/dL (8.5-10.5); Carbon Dioxide 23 mmol/L (22-29); Chloride 95 mmol/L (98-107); Creatinine Clr Calc Pharmacy 91.7763; Glomerular Filtration Rate 78.2 mL/min (90-130); Glucose 473 mg/dL (65-115); Osmolality Calculated 304 mOsm/kg (285-295); Potassium 4.8 mmol/L (3.5-5.1); Sodium 134 mmol/L (136-145); Total Bilirubin 0.4 mg/dL (0.15-1.2); Total Protein 7.1 g/dL (6.6-8.7)
[2021-10-30] MEDS: lidocaine 2% viscous 15 ML, aluminum-mag hydrox-simethicon 30 ML, sucralfate oral liq 1 GM PO (12:32)
[2021-10-30] MEDS: sodium chloride 0.9% 1,000 ML 999 ML IV (12:33)
[2021-10-30] MEDS: hyDRALAzine 20 mg/mL INJ 1 mL IVP (14:19)
[2021-10-30] MEDS: amlodipine 5 mg Tablet PO (14:20)
[2021-10-30 14:25] LABS: Add Urine Microscopic? NO; Charge for UA Resulting for Rev
[2021-10-30 14:29] LABS: Bilirubin Urine Neg (Negative); Blood Urine Neg (Negative); Glucose Urine UA 4+ (Normal); Ketones Urine 2+ (Negative); Nitrate Urine Negative (Negative); Protein Urine Neg (Negative); Urine Appearance Clear (CLEAR); Urine Color Straw (Yellow); Urobilinogen Urine Norm (Negative); pH Urine 5 (5-7)
[2021-10-30 14:30] LABS: Leukocyte Esterase Urine Negative (Negative)
--- NOTE | 2021-10-30 14:41 | W.ED.DIZZY ---
HPI - Dizziness General: Chief Complaint: Dizziness Stated Complaint: hasn't been feeling well Time Seen by Provider: 10/30/21 11:18 Source: patient Mode of arrival: ambulatory Limitations: no limitations History of Present Illness: HPI Narrative: 51-year-old male presents emergency room complaining of dizziness that began this morning. He woke up with dizziness has not had any nausea or vomiting no abdominal discomfort. No chest pain or shortness of breath he states its due to the fact that he only had 1 drink instead of 3 or 4 last night. He has no vertiginous-like symptoms when discussing with it further it is more he is unsteady on his feet and lightheaded than any true vertigo. He is able to use a phone without any difficulty. MD elicited complaint: dizziness and lightheadedness Onset (ago): hour(s) Timing: awoke with symptoms Severity: mild Description: sense of movement and lightheadedness Context: change in body position Exacerbating factors: change in body position Relieving factors: remaining still Associated symptoms: Denies change in hearing, chest pain, chills, cough, diaphoresis, ear discharge, ear pressure, fevers/chills, headache(s), malaise, nausea, nasal congestion, palpitations, rash, short of breath, syncope, tinnitus, vomiting or weakness Associated neuro symptoms: Deny confusion, difficulty speaking, dysphagia, diplopia, extremity weakness, facial numbness, facial weakness, gait changes, numbness in extremities or visual changes Review of Systems Const: Denies: fever(s), chills, malaise or diaphoresis ENMT: Denies: ear discharge, change in hearing, tinnitus or nasal congestion Card: Denies: chest pain, palpitations or syncope Resp: Denies: dyspnea, productive cough or non-productive cough GI: Denies: nausea, vomiting or dysphagia : Denies: flank pain, dysuria, urinary frequency or urinary urgency Skin/Breast: Denies: rash or pruritus Neuro: Denies: headache(s), numbness in extremities or confusion PFSH ED PFSH: Medical History Diabetes Hypertension Psychiatric care PVD (peripheral vascular disease) Social History Smoking and tobacco status: current every day smoker Alcohol intake: current Physical Exam Const: COMMON NORMALS: no acute distress GENERAL APPEARANCE: cooperative and comfortable ORIENTATION/CONSCIOUSNESS: Yes awake, Yes oriented to person, Yes oriented to place and Yes oriented to time HENMT: COMMON NORMALS: normocephalic, atraumatic and hearing grossly normal bilaterally HEAD & SCALP: normocephalic and atraumatic Neck/C-Spine: COMMON NORMALS: no JVD Resp: COMMON NORMALS: normal respiratory effort, No retractions, No use of accessory muscles and clear to auscultation bilaterally AUSCULTATION: clear to auscultation bilaterally Cardio: COMMON NORMALS: no JVD, regular rate, regular rhythm and No murmurs present (Cardio) RATE: regular rate RHYTHM: regular rhythm GI: COMMON NORMALS: Soft to palpation and No hepatosplenomegaly present AUSCULTATION: Yes normoactive bowel sounds PALPATION: Yes Soft to palpation, No Tenderness to palpation present (GI), No Guarding due to palpation present (GI) and Yes No hepatosplenomegaly present Extremity: COMMON NORMALS: normal to inspection, capillary refill normal, no clubbing, cyanosis or edema, no calf tenderness and no pedal edema Neuro: SENSORIUM/ORIENTATION: Yes oriented to person, Yes oriented to place and Yes oriented to time Skin: COMMON NORMALS: no rashes or lesions noted GENERAL SKIN EXAM: no rashes or lesions noted Course Vital Signs: Vital signs: Vital Signs Temperature 97.9 F 10/30/21 10:49 Pulse Rate 98 10/30/21 10:49 Respiratory Rate 18 10/30/21 10:49 Blood Pressure 164/84 10/30/21 10:49 Pulse Oximetry 95 10/30/21 10:49 MDM - Dizziness Medical Decision Making Feeling better after fluids but is the blood pressure did increase significantly. Given some hydralazine and amlodipine. Overall he states he is feeling better we will go ahead and discharge patient on repeat exam he has no focal neurologic deficits at this time. Recommend abstinence from alcohol. Medical Records I reviewed the patient's medical records. Lab Data I reviewed the patient's lab results. : 10/30/21 11:00 10/30/21 11:00 Laboratory Results WBC 6.9 10^3/uL (4.0-10.0) 10/30/21 11:00 RBC 4.47 10^6/uL (4.1-5.3) 10/30/21 11:00 Hgb 13.8 g/dL (11.7-16.6) 10/30/21 11:00 Hct 38.4 % (42.0-52.0) L 10/30/21 11:00 MCV 85.9 fl (80-94) 10/30/21 11:00 MCH 30.9 pg (28.0-34.0) 10/30/21 11:00 MCHC 35.9 g/dL (30.0-36.0) 10/30/21 11:00 RDW 12.3 % (12.1-15.1) 10/30/21 11:00 Plt Count 209 10^3/cmm (130-400) 10/30/21 11:00 MPV 11.6 fL (7.4-10.4) H 10/30/21 11:00 Neut % (Auto) 68.0 % 10/30/21 11:00 Lymph % (Auto) 17.5 % 10/30/21 11:00 [place] % (Auto) 8.8 % 10/30/21 11:00 Eos % (Auto) 4.2 % 10/30/21 11:00 Baso % (Auto) 1.2 % 10/30/21 11:00 Neut # (Auto) 4.69 10^3/uL (1.8-7.7) 10/30/21 11:00 Lymph # (Auto) 1.2 10^3/uL (0.8-4.8) 10/30/21 11:00 [place] # (Auto) 0.6 10^3/uL (0.2-0.9) 10/30/21 11:00 Eos # (Auto) 0.3 10^3/uL (0.0-0.8) 10/30/21 11:00 Baso # (Auto) 0.1 10^3/uL (0.0-0.1) 10/30/21 11:00 Nucleated RBC % (auto) 0 % 10/30/21 11:00 Nucleated RBCs # 0.0 /100WBC 10/30/21 11:00 Sodium 134 mmol/L (136-145) L 10/30/21 11:00 Potassium 4.8 mmol/L (3.5-5.1) 10/30/21 11:00 Chloride 95 mmol/L (98-107) L 10/30/21 11:00 Carbon Dioxide 23 mmol/L (22-29) 10/30/21 11:00 Anion Gap 20.8 (5-19) H 10/30/21 11:00 BUN 28 mg/dL (6-20) H 10/30/21 11:00 Creatinine 1.0 mg/dL (0.7-1.2) 10/30/21 11:00 GFR Calculation 78.2 mL/min (90-130) L 10/30/21 11:00 Glucose 473 mg/dL (65-115) H 10/30/21 11:00 Calculated Osmolality 304 mOsm/kg (285-295) H 10/30/21 11:00 Calcium 9.3 mg/dL (8.5-10.5) 10/30/21 11:00 Total Bilirubin 0.4 mg/dL (0.15-1.2) 10/30/21 11:00 AST 8 U/L (0-40) 10/30/21 11:00 ALT 12 U/L (0-41) 10/30/21 11:00 Alkaline Phosphatase 79 IU/L (40-130) 10/30/21 11:00 Total Protein 7.1 g/dL (6.6-8.7) 10/30/21 11:00 Albumin 4.1 g/dL (3.5-5.2) 10/30/21 11:00 Globulin 3.0 g/dL (1.3-4.6) 10/30/21 11:00 Urine Color Straw (Yellow) 10/30/21 12:58 Urine Appearance Clear (CLEAR) 10/30/21 12:58 Urine pH 5 (5-7) 10/30/21 12:58 Ur Specific [place] 1.010 (1.005-1.030) 10/30/21 12:58 Urine Protein Neg (Negative) 10/30/21 12:58 Urine Glucose (UA) 4+ (Normal) H 10/30/21 12:58 Urine Ketones 2+ (Negative) H 10/30/21 12:58 Urine Blood Neg (Negative) 10/30/21 12:58 Urine Nitrate Negative (Negative) 10/30/21 12:58 Urine Bilirubin Neg (Negative) 10/30/21 12:58 Urine Urobilinogen Norm mg/dL (Negative) 10/30/21 12:58 Ur Leukocyte Esterase Negative (Negative) 10/30/21 12:58 Discharge Plan Discharge Patient Disposition: Home Clinical Impression: Dizziness, HTN (hypertension) Condition: Stable Prescriptions: New amlodipine 5 mg tablet 5 mg PO DAILY Qty: 30 0RF No Action losartan 50 mg tablet 50 mg PO DAILY 0RF ezetimibe 10 mg tablet 10 mg PO DAILY 0RF duloxetine 60 mg capsule,delayed release(DR/EC) 60 mg PO DAILY 30 Days Qty: 30 3RF aspirin [Adult Aspirin Regimen] 81 mg tablet,delayed release (DR/EC) 81 mg PO DAILY 0RF propranolol 60 mg capsule,extended release 24 hr 60 mg PO DAILY 0RF clopidogrel [Plavix] 75 mg tablet 75 mg PO DAILY 0RF Toujeo Max U-300 SoloStar 300 unit/mL (3 mL) insulin pen 66 unit SUBCUT Q24H 0RF pregabalin 150 mg capsule 150 mg PO BEDTIME 0RF insulin aspart U-100 [Novolog Flexpen U-100 Insulin] 100 unit/mL (3 mL) insulin pen See Rx Instructions .ROUTE .COMPLEX 0RF Rx Instructions: PER SLIDING SCALE naproxen [EC-Naprosyn] 500 mg tablet,delayed release (DR/EC) 500 mg PO BID PRN (Reason: pain) Qty: 20 0RF Discharge Orders: Discharge ED (Routine); Ordered 10/30/21 Ordered By: Jose Mike Referrals: Karen Bagley APN [Primary Care Provider] - Discharge Diet: Regular Discharge Activity: Increase activity as tolerated Patient Instructions: Opioid Safety Activity Restrictions/Additional Instructions: Start amlodipine 5 mg daily. Follow-up with your primary care doctor recheck blood pressure within a week. Coding Level of Care Code ED Dynamotor Repairer for Seun Parada
[2021-10-30 15:01] VITALS: BP 182/96; PULSE 87; RESP 17; O2SAT 98
== END 2021-10-30 15:00 | disposition home or self-care (01) ==
PROVIDERS: Emergency Provider Family Medicine; PCP Nurse Practitioner Family
DX: R42 Dizziness and giddiness (principal); I10 Essential (primary) hypertension; E11.9 Type 2 diabetes mellitus without complications; I73.9 Peripheral vascular disease, unspecified; F17.200 Nicotine dependence, unspecified, uncomplicated
CPT/HCPCS: 80053; 81003; 85025; 93005; 96361; 96374; 99284; J0360; J7030

== ENCOUNTER 2021-11-20 10:10 | Emergency (ER) | payer MEDICARE, MEDICAID, SELFPAY ==
[2021-07-30 13:44] VITALS: BP 140/81; BMI 23.7
[2021-11-20 10:25] VITALS: BP 148/82; PULSE 76; RESP 15; TEMP 36.5; O2SAT 95; BMI 23.0
--- NOTE | 2021-11-20 10:29 | W.ED.GENADLT ---
HPI - General Adult General: Chief complaint: General Medical Stated complaint: DIZZINESS; HYPERGLYCEMIA Time Seen by Provider: 11/20/21 10:16 Source: patient Mode of arrival: ambulatory Limitations: no limitations History of Present Illness: 51-year-old male presents emergency room with complaint of dizziness and elevated blood sugars. He took his regular insulin last night and this morning as it is usually prescribed glargine and NovoLog. He got nauseous and dizzy this morning felt his blood sugar was elevated. He is not had any vomiting denies any abdominal pain or chest pain no dysuria urgency or frequency no fever sweats chills cough or shortness of breath. Onset (ago): hour(s) Severity: mild Relieving factors: none Exacerbating factors: none Associated symptoms: Reports malaise and nausea; Deny chest pain, confusion, cough, diaphoresis, decreased appetite, dyspnea, fevers/chills, headache(s), rash, palpitations, seizures, short of breath, syncope, vomiting or weakness Treatments prior to arrival: none Review of Systems Const: Reports: fatigue and malaise; Denies: fever(s), chills or diaphoresis ENMT: Denies: throat pain, ear or mastoid pain, nasal discharge or nasal congestion Card: Denies: chest pain, palpitations or syncope Resp: Denies: dyspnea, productive cough or non-productive cough GI: Reports: nausea; Denies: abdominal pain or vomiting : Denies: flank pain, difficulty urinating, dysuria, urinary frequency or urinary urgency Skin/Breast: Denies: rash Neuro: Denies: headache(s) or confusion PFSH ED PFSH: Medical History Diabetes Hypertension Psychiatric care PVD (peripheral vascular disease) Social History Smoking and tobacco status: current every day smoker Alcohol intake: current Physical Exam Const: COMMON NORMALS: no acute distress GENERAL APPEARANCE: cooperative and comfortable ORIENTATION/CONSCIOUSNESS: Yes awake, Yes oriented to person, Yes oriented to place and Yes oriented to time HENMT: COMMON NORMALS: normocephalic, atraumatic and hearing grossly normal bilaterally HEAD & SCALP: normocephalic and atraumatic Neck/C-Spine: COMMON NORMALS: no JVD Resp: COMMON NORMALS: normal respiratory effort, No retractions, No use of accessory muscles and clear to auscultation bilaterally AUSCULTATION: clear to auscultation bilaterally Cardio: COMMON NORMALS: no JVD, regular rate, regular rhythm and No murmurs present (Cardio) RATE: regular rate RHYTHM: regular rhythm GI: COMMON NORMALS: Soft to palpation and No hepatosplenomegaly present AUSCULTATION: Yes normoactive bowel sounds PALPATION: Yes Soft to palpation, No Tenderness to palpation present (GI), No Guarding due to palpation present (GI) and Yes No hepatosplenomegaly present Extremity: COMMON NORMALS: normal to inspection, capillary refill normal, no clubbing, cyanosis or edema, no calf tenderness and no pedal edema Neuro: SENSORIUM/ORIENTATION: Yes oriented to person, Yes oriented to place and Yes oriented to time Skin: COMMON NORMALS: no rashes or lesions noted GENERAL SKIN EXAM: no rashes or lesions noted Course Vital Signs: Vital signs: Vital Signs Temperature 97.7 F 11/20/21 10:25 Pulse Rate 71 11/20/21 12:43 Respiratory Rate 14 11/20/21 12:43 Blood Pressure 121/69 11/20/21 12:43 Pulse Oximetry 97 11/20/21 12:43 [facility] - General Adult Medical Decision Making Labs reviewed discussed with patient. Discharge home fluids have been given. We will have him use antiemetics monitor blood sugar closely feeling better return if has problems. Medical Records I reviewed the patient's medical records. Lab Data I reviewed the patient's lab results. : 11/20/21 11:09 11/20/21 11:09 Laboratory Results WBC 6.0 10^3/uL (4.0-10.0) 11/20/21 11:09 RBC 4.05 10^6/uL (4.1-5.3) L 11/20/21 11:09 Hgb 12.7 g/dL (11.7-16.6) 11/20/21 11:09 Hct 37.5 % (42.0-52.0) L 11/20/21 11:09 MCV 92.6 fl (80-94) 11/20/21 11:09 MCH 31.4 pg (28.0-34.0) 11/20/21 11:09 MCHC 33.9 g/dL (30.0-36.0) 11/20/21 11:09 RDW 13.1 % (12.1-15.1) 11/20/21 11:09 Plt Count 181 10^3/cmm (130-400) 11/20/21 11:09 MPV 10.6 fL (7.4-10.4) H 11/20/21 11:09 Neut % (Auto) 61.3 % 11/20/21 11:09 Lymph % (Auto) 24.7 % 11/20/21 11:09 [place] % (Auto) 7.9 % 11/20/21 11:09 Eos % (Auto) 4.9 % 11/20/21 11:09 Baso % (Auto) 1.0 % 11/20/21 11:09 Neut # (Auto) 3.66 10^3/uL (1.8-7.7) 11/20/21 11:09 Lymph # (Auto) 1.5 10^3/uL (0.8-4.8) 11/20/21 11:09 [place] # (Auto) 0.5 10^3/uL (0.2-0.9) 11/20/21 11:09 Eos # (Auto) 0.3 10^3/uL (0.0-0.8) 11/20/21 11:09 Baso # (Auto) 0.1 10^3/uL (0.0-0.1) 11/20/21 11:09 Nucleated RBC % (auto) 0 % 11/20/21 11:09 Nucleated RBCs # 0.0 /100WBC 11/20/21 11:09 Sodium 137 mmol/L (136-145) 11/20/21 11:09 Potassium 4.0 mmol/L (3.5-5.1) 11/20/21 11:09 Chloride 103 mmol/L (98-107) 11/20/21 11:09 Carbon Dioxide 26 mmol/L (22-29) 11/20/21 11:09 Anion Gap 12.0 (5-19) 11/20/21 11:09 BUN 31 mg/dL (6-20) H 11/20/21 11:09 Creatinine 1.0 mg/dL (0.7-1.2) 11/20/21 11:09 GFR Calculation 78.2 mL/min (90-130) L 11/20/21 11:09 Glucose 218 mg/dL (65-115) H 11/20/21 11:09 POC Glucose 152 mg/dL (70-110) H 11/20/21 12:36 Calculated Osmolality 297 mOsm/kg (285-295) H 11/20/21 11:09 Calcium 8.6 mg/dL (8.5-10.5) 11/20/21 11:09 Total Bilirubin 0.2 mg/dL (0.15-1.2) 11/20/21 11:09 AST 8 U/L (0-40) 11/20/21 11:09 ALT 10 U/L (0-41) 11/20/21 11:09 Alkaline Phosphatase 51 IU/L (40-130) 11/20/21 11:09 Total Protein 5.6 g/dL (6.6-8.7) L 11/20/21 11:09 Albumin 3.5 g/dL (3.5-5.2) 11/20/21 11:09 Globulin 2.1 g/dL (1.3-4.6) 11/20/21 11:09 Urine Color Yellow (Yellow) 11/20/21 11:10 Urine Appearance Clear (CLEAR) 11/20/21 11:10 Urine pH 5 (5-7) 11/20/21 11:10 Ur Specific [place] 1.020 (1.005-1.030) 11/20/21 11:10 Urine Protein Neg (Negative) 11/20/21 11:10 Urine Glucose (UA) 4+ (Normal) H 11/20/21 11:10 Urine Ketones 1+ (Negative) H 11/20/21 11:10 Urine Blood Neg (Negative) 11/20/21 11:10 Urine Nitrate Negative (Negative) 11/20/21 11:10 Urine Bilirubin Neg (Negative) 11/20/21 11:10 Urine Urobilinogen Norm mg/dL (Negative) 11/20/21 11:10 Ur Leukocyte Esterase Negative (Negative) 11/20/21 11:10 Serum Ketones Negative (Negative) 11/20/21 11:09 Discharge Plan Discharge Patient Disposition: Home Clinical Impression: Diarrhea, Hyperglycemia, Diabetes Condition: Stable Prescriptions: No Action losartan 50 mg tablet 50 mg PO QAM 0RF ezetimibe 10 mg tablet 10 mg PO QAM 0RF aspirin [Adult Aspirin Regimen] 81 mg tablet,delayed release (DR/EC) 81 mg PO QAM 0RF clopidogrel [Plavix] 75 mg tablet 75 mg PO QAM 0RF Toujeo Max U-300 SoloStar 300 unit/mL (3 mL) insulin pen 66 unit SUBCUT BEDTIME 0RF duloxetine 60 mg capsule,delayed release(DR/EC) 60 mg PO QAM 30 Days Qty: 30 3RF pregabalin 150 mg capsule 150 mg PO BEDTIME 0RF naproxen [EC-Naprosyn] 500 mg tablet,delayed release (DR/EC) 500 mg PO BID PRN (Reason: pain) Qty: 20 0RF propranolol 120 mg capsule,extended release 24 hr 120 mg PO QAM 0RF Novolog Flexpen U-100 Insulin 100 unit/mL (3 mL) insulin pen See Rx Instructions .ROUTE .COMPLEX 0RF Rx Instructions: BEFORE MEALS 16 UNITS BASE WITH 2 UNITS OVER EVERY 100 (MAX 100 UNITS PER DAY) Discharge Orders: Discharge ED (Routine); Ordered 11/20/21 Ordered By: Jose Mike Referrals: Karen Bagley APN [Primary Care Provider] - Discharge Diet: Full LIquid Discharge Activity: Resume usual activity Activity Restrictions/Additional Instructions: Monitor glucose 4-6 times a day for the next 1 to 2 days. Increase fluid intake use your NovoLog on sliding scale to control blood sugars. Coding Level of Care Code ED Inside Account Representative for Seun Parada
[2021-11-20 10:31] VITALS: BP 140/74; PULSE 72; RESP 14; O2SAT 94
[2021-11-20] MEDS: sodium chloride 0.9% 1,000 ML 999 ML IV (10:43)
[2021-11-20] MEDS: metoclopramide 5 mg/mL SDV 2 mL 10 MG IVP (10:43)
[2021-11-20 11:01] VITALS: BP 150/79; PULSE 75; RESP 15; O2SAT 97
[2021-11-20 11:18] LABS: Basophils # 0.1 10^3/uL (0.0-0.1); Eosinophils # 0.3 10^3/uL (0.0-0.8); Eosinophils % 4.9 %; Hematocrit 37.5 % (42.0-52.0); Hemoglobin 12.7 g/dL (11.7-16.6); Lymphocytes # 1.5 10^3/uL (0.8-4.8); Lymphocytes % 24.7 %; Mean Corpuscular HGB Conc 33.9 g/dL (30.0-36.0); Mean Corpuscular Hemoglobin 31.4 pg (28.0-34.0); Mean Corpuscular Volume 92.6 fl (80-94); Mean Platelet Volume 10.6 fL (7.4-10.4); Monocytes # 0.5 10^3/uL (0.2-0.9); Monocytes % 7.9 %; Neutrophils # 3.66 10^3/uL (1.8-7.7); Neutrophils % 61.3 %; Nucleated Red Blood Cells % 0 %; Platelet Count 181 10^3/cmm (130-400); Red Blood Count 4.05 10^6/uL (4.1-5.3); Red Cell Distribution Width 13.1 % (12.1-15.1)
[2021-11-20 11:22] LABS: Add Urine Microscopic? NO; Charge for UA Resulting for Rev
[2021-11-20 11:27] LABS: Bilirubin Urine Neg (Negative); Blood Urine Neg (Negative); Glucose Urine UA 4+ (Normal); Ketones Urine 1+ (Negative); Nitrate Urine Negative (Negative); Protein Urine Neg (Negative); Urine Appearance Clear (CLEAR); Urine Color Yellow (Yellow); pH Urine 5 (5-7)
[2021-11-20 11:28] LABS: Ketone (Acetest) Serum Negative (Negative)
[2021-11-20 11:28] LABS: Leukocyte Esterase Urine Negative (Negative); Urobilinogen Urine Norm (Negative)
[2021-11-20 11:31] VITALS: BP 148/77; PULSE 69; RESP 14; O2SAT 97
[2021-11-20 11:36] LABS: Alanine Aminotransferase 10 U/L (0-41); Albumin Level 3.5 g/dL (3.5-5.2); Alkaline Phosphatase 51 IU/L (40-130); Aspartate Amino Transferase 8 U/L (0-40); Blood Urea Nitrogen 31 mg/dL (6-20); Calcium 8.6 mg/dL (8.5-10.5); Carbon Dioxide 26 mmol/L (22-29); Chloride 103 mmol/L (98-107); Creatinine Clr Calc Pharmacy 93.5303; Globulin 2.1 g/dL (1.3-4.6); Glomerular Filtration Rate 78.2 mL/min (90-130); Glucose 218 mg/dL (65-115); Osmolality Calculated 297 mOsm/kg (285-295); Sodium 137 mmol/L (136-145); Total Bilirubin 0.2 mg/dL (0.15-1.2); Total Protein 5.6 g/dL (6.6-8.7)
[2021-11-20 12:01] VITALS: BP 125/72; PULSE 67; RESP 13; O2SAT 94
[2021-11-20 12:43] VITALS: BP 121/69; PULSE 71; RESP 14; O2SAT 97
[2021-11-20 12:44] LABS: Glucose Point of Care 152 mg/dL (70-110)
== END 2021-11-20 12:44 | disposition home or self-care (01) ==
PROVIDERS: Emergency Provider Family Medicine; PCP Nurse Practitioner Family
DX: E11.65 Type 2 diabetes mellitus with hyperglycemia (principal); Z79.4 Long term (current) use of insulin; R19.7 Diarrhea, unspecified; I10 Essential (primary) hypertension
CPT/HCPCS: 36416; 80053; 81003; 82009; 82962; 85025; 96361; 96374; 99284; J2765; J7030

== ENCOUNTER → 2022-01-19 12:25 | Outpatient (BNVA) | payer MEDICARE, SELFPAY ==
[2021-07-30 13:44] VITALS: BP 140/81; BMI 23.7
== END ==
PROVIDERS: Visit Provider Family Medicine
DX: Z76.89 Persons encountering health services in other specified circumstances (principal); I10 Essential (primary) hypertension; E78.2 Mixed hyperlipidemia; E80.21 Acute intermittent (hepatic) porphyria; R51.9 Headache, unspecified; G89.29 Other chronic pain; G45.9 Transient cerebral ischemic attack, unspecified; I73.9 Peripheral vascular disease, unspecified; E11.9 Type 2 diabetes mellitus without complications; D56.5 Hemoglobin E-beta thalassemia; Z12.5 Encounter for screening for malignant neoplasm of prostate
CPT/HCPCS: 80053; 80061; 83036; 84153; 84443; 85025; 86803; 87806

== ENCOUNTER → 2022-02-28 16:05 | Outpatient (BNVA) | payer MEDICARE, MEDICAID, SELFPAY ==
[2021-07-30 13:44] VITALS: BP 140/81; BMI 23.7
== END ==
PROVIDERS: PCP Family Medicine; Visit Provider Registered Nurse Neonatal Intensive Care
DX: U07.1 COVID-19 (principal)
CPT/HCPCS: 87426

== ENCOUNTER → 2022-03-30 10:24 | Outpatient (BNVA) | payer MEDICARE, MEDICAID, SELFPAY ==
[2021-07-30 13:44] VITALS: BP 140/81; BMI 23.7
== END ==
PROVIDERS: PCP Family Medicine; Visit Provider Anesthesiology Pain Medicine
DX: G89.29 Other chronic pain; M47.816 Spondylosis without myelopathy or radiculopathy, lumbar region; M51.16 Intervertebral disc disorders with radiculopathy, lumbar region; G62.89 Other specified polyneuropathies; M79.604 Pain in right leg; M79.605 Pain in left leg; F17.210 Nicotine dependence, cigarettes, uncomplicated; M54.50 Low back pain, unspecified
CPT/HCPCS: 72110; 99205

== ENCOUNTER → 2022-05-04 15:38 | Outpatient (BNVA) | payer MEDICARE, OTHER, SELFPAY ==
[2022-05-04 15:01] VITALS: BP 140/81; BMI 23.7
== END ==
PROVIDERS: PCP Family Medicine; Referring Provider Family Medicine; Visit Provider Internal Medicine
DX: E11.9 Type 2 diabetes mellitus without complications (principal); Z79.4 Long term (current) use of insulin; E78.2 Mixed hyperlipidemia; E55.9 Vitamin D deficiency, unspecified
CPT/HCPCS: 80053; 80061; 82044; 82306; 83036; 84681; 86337; 86341

== ENCOUNTER 2022-06-27 11:24 | Emergency (ER) | payer MEDICARE, SELFPAY ==
[2022-05-04 15:01] VITALS: BP 140/81; BMI 23.7
[2022-06-27 11:47] VITALS: BP 161/92; PULSE 96; RESP 16; TEMP 36.8; O2SAT 96
--- NOTE | 2022-06-27 12:05 | W.ED.DENTAL ---
HPI - Dental/Oral General: Chief complaint: Dental/Oral Stated complaint: Dental pain Time Seen by Provider: 06/27/22 11:55 Source: patient Mode of arrival: ambulatory Limitations: no limitations History of Present Illness: Patient is a 52-year-old male who presents to ED today with a complaint of dental pain over the past several days. Patient states he had a appointment with a dentist for dental extractions but this had to be canceled secondary to transportation issues. He has not noticed any swelling to his mouth, face, or neck. No fevers. Patient has been eating and drinking appropriately MD Complaint: tooth pain Onset (ago): day(s) Duration: constant Severity: moderate Relieving factors: nothing Exacerbating factors: chewing Context: history of dental caries and poor dental care Associated symptoms: Reports no associated symptoms; Denies fever(s) or odynophagia Treatment prior to arrival: topical analgesic and oral analgesic Review of Systems Const: Denies: fever(s), chills, body aches, fatigue or malaise ENMT: Reports: dental pain; Denies: throat pain, uvular edema, enlarged tonsils, odynophagia, hoarseness, mouth pain, swelling of lips/tongue, oral sores or bleeding gums Card: Denies: chest pain Resp: Denies: dyspnea Musc: Denies: neck pain Skin/Breast: Denies: rash Neuro: Denies: headache(s) or dizziness PFS ED PFSH: Medical History Hypertension Low back pain Major depressive disorder, single episode Peripheral neuropathy Psychiatric care PVD (peripheral vascular disease) Sleep apnea Social History Smoking and tobacco status: current every day smoker cigarettes Packs smoked per day: 0.5 Quit status (tobacco): considering quitting Alcohol intake: current Alcohol intake frequency: 3 or more drinks per day Alcohol type: hard liquor History of recent travel: No Physical Exam Const: COMMON NORMALS: no acute distress, patient oriented x3, no limitations, alert and well nourished HENMT: COMMON NORMALS: normocephalic and atraumatic HEAD & SCALP: normal to inspection, normocephalic and atraumatic FACE & SINUS: normal facial exam MOUTH: Normal oral and palatal mucosa present, lip normal and tongue normal TEETH & GINGIVA: Yes caries, Yes poor dentition and Yes other (widespread severe periodontal disease; no abscess) THROAT: posterior oropharynx normal, tonsils normal and uvula midline; no uvular edema Neck/C-Spine: GENERAL: Yes normal visual inspection, No anterior neck swelling and No submandibular swelling Resp: COMMON NORMALS: normal respiratory effort and clear to auscultation bilaterally AUSCULTATION: clear to auscultation bilaterally Cardio: COMMON NORMALS: regular rate and regular rhythm RATE: regular rate RHYTHM: regular rhythm Neuro: COMMON NORMALS: patient oriented x3 SENSORIUM/ORIENTATION: Yes alert Course Vital Signs: Vital signs: Vital Signs Temperature 98.2 F 06/27/22 11:47 Pulse Rate 96 06/27/22 11:47 Respiratory Rate 16 06/27/22 11:47 Blood Pressure 161/92 06/27/22 11:47 Pulse Oximetry 96 06/27/22 11:47 MDM - Dental/Oral Medical Decision Making Recommend patient get into a dentist as soon as possible for his widespread dental decay and need for multiple extractions. Will place on antibiotics. Return to ED precautions given. Discharge Plan Discharge Patient Disposition: Home Clinical Impression: Severe dental caries Condition: Stable Prescriptions: New penicillin V potassium 500 mg tablet 500 mg PO Q8H 7 Days Qty: 21 0RF No Action Toujeo Max U-300 SoloStar 300 unit/mL (3 mL) insulin pen 66 unit SUBCUT BEDTIME guaifenesin 400 mg tablet 400 mg PO QID PRN (Reason: cough) Qty: 30 0RF benzonatate 200 mg capsule 200 mg PO BID PRN (Reason: cough) Qty: 14 0RF (DME) pen needle, diabetic [BD Ultra-Fine Micro Pen Needle] 32 gauge x 1/4 needle See Rx Instructions .ROUTE .MEDSUPPLY Qty: 360 3RF Rx Instructions: As directed naproxen 250 mg tablet 250 mg PO BID PRN Novolog FlexPen U-100 Insulin 100 unit/mL (3 mL) insulin pen See Rx Instructions .ROUTE .COMPLEX Qty: 15 5RF Rx Instructions: BEFORE MEALS 16 UNITS BASE WITH 2 UNITS OVER EVERY 100 (MAX 100 UNITS PER DAY) (DME) diabetic supplies, miscellan. Misc See Rx Instructions miscellaneous .MEDSUPPLY Qty: 1 5RF Rx Instructions: Dexcom G6 transmitter/subscription clerk, Software [employer] Verio Flex System, Easy touch Pen 31G 8Mm (100) rosuvastatin 10 mg tablet 10 mg PO DAILY Qty: 90 3RF Rx Instructions: Take 1 tablet daily aspirin [Adult Aspirin Regimen] 81 mg tablet,delayed release (DR/EC) 81 mg PO QAM Qty: 90 0RF clopidogrel [Plavix] 75 mg tablet 75 mg PO QAM Qty: 90 3RF duloxetine 30 mg capsule,delayed release(DR/EC) 90 mg PO QAM 30 Days Qty: 90 3RF ezetimibe 10 mg tablet 10 mg PO QAM Qty: 90 0RF losartan 50 mg tablet 50 mg PO QAM Qty: 90 0RF propranolol 120 mg capsule,extended release 24 hr 120 mg PO QAM Qty: 90 0RF Xarelto 10 mg tablet 10 mg PO BID Qty: 180 0RF Rx Instructions: for 35 days pregabalin 150 mg capsule 150 mg PO BEDTIME Qty: 30 2RF Discharge Orders: Discharge ED (Routine); Ordered 06/27/22 Ordered By: Eva Lopez Referrals: Tim George DO [Primary Care Provider] - Patient Instructions: Dental Caries (Cavities), Toothache (ED) Coding Level of Care Code ED Gear Machine Operator General for Seun Parada
== END 2022-06-27 12:14 | disposition home or self-care (01) ==
PROVIDERS: Emergency Provider Physician Assistant; PCP Family Medicine
DX: K02.9 Dental caries, unspecified (principal); Z79.82 Long term (current) use of aspirin; Z79.02 Long term (current) use of antithrombotics/antiplatelets; Z79.4 Long term (current) use of insulin; I10 Essential (primary) hypertension; F17.210 Nicotine dependence, cigarettes, uncomplicated
CPT/HCPCS: 99283

== ENCOUNTER → 2022-08-19 10:06 | Outpatient (BNVA) | payer OTHER, SELFPAY ==
[2022-05-04 15:01] VITALS: BP 140/81; BMI 23.7
== END ==
PROVIDERS: PCP Family Medicine; Visit Provider Internal Medicine
DX: G62.9 Polyneuropathy, unspecified (principal); I73.9 Peripheral vascular disease, unspecified; E55.9 Vitamin D deficiency, unspecified; E78.2 Mixed hyperlipidemia; E10.9 Type 1 diabetes mellitus without complications
CPT/HCPCS: 36415; 80053; 80061; 82044; 83036

== ENCOUNTER 2022-08-28 03:29 | Emergency (ER) | payer MEDICARE, SELFPAY ==
[2022-05-04 15:01] VITALS: BP 140/81; BMI 23.7
[2022-08-28 03:33] VITALS: BP 167/89; PULSE 77; RESP 16; O2SAT 99; BMI 21.7
[2022-08-28 04:52] VITALS: BP 165/82; PULSE 73; RESP 16; O2SAT 99
[2022-08-28] MEDS: cephALEXin 500 mg Capsule 1000 MG PO (05:20)
[2022-08-28] MEDS: ketorolac 30 mg/mL INJ IM (05:20)
[2022-08-28 05:23] VITALS: PULSE 74; RESP 16; O2SAT 100
--- NOTE | 2022-08-28 16:46 | W.ED.DENTAL ---
HPI - Dental/Oral General: Chief complaint: Dental/Oral Stated complaint: TOOH PAIN Time Seen by Provider: 08/28/22 04:42 Source: patient History of Present Illness: 52 year old male with a history of dental problems. He presents with lower left tooth pain, swelling. No fever. Hasn't taken anything for the pain. Notes he has had to have antibiotics for this tooth before. He has an appointment in september for the dentist to pull this tooth. Onset (ago): hour(s) Duration: constant Severity: moderate Relieving factors: nothing Exacerbating factors: chewing Context: history of dental caries and poor dental care Associated symptoms: Denies ear or mastoid pain, fever(s), gum swelling, odynophagia, sore throat or tongue swelling Treatment prior to arrival: none Review of Systems Const: Denies: fever(s) ENMT: Denies: throat pain, odynophagia, hoarseness or ear or mastoid pain All/Imm: Denies: tongue swelling PFSH ED PFSH: Medical History Hypertension Low back pain Major depressive disorder, single episode Peripheral neuropathy Psychiatric care PVD (peripheral vascular disease) Sleep apnea Family History Mother Cancer Hypertension Stroke Denies family history of Diabetes CAD (coronary artery disease) Social History Smoking and tobacco status: current every day smoker cigarettes Packs smoked per day: 0.5 Years cigarettes smoked: 40 Quit status (tobacco): considering quitting Alcohol intake: current Alcohol intake frequency: 3 or more drinks per day Alcohol type: hard liquor Lives independently: Yes Household members: none Housing: Homeless Marital status: Single Number of children: 1 Pets and animals: Yes Pets & animals: dog(s) Physical Exam Const: COMMON NORMALS: no acute distress GENERAL APPEARANCE: cooperative; not ill appearing HENMT: COMMON NORMALS: normocephalic and atraumatic HEAD & SCALP: normocephalic and atraumatic FACE & SINUS: normal facial exam; no edema NOSE: Normal nares present TEETH & GINGIVA: Yes abnormal tooth and associated gingiva (Lower left. decay with exposed pulp, surrounding edema/abscess) Eye: COMMON NORMALS: Equal, round and reactive pupils present and EOMs intact bilaterally PUPIL: Yes Equal, round and reactive pupils present Neck/C-Spine: GENERAL: Yes trachea midline Resp: COMMON NORMALS: normal respiratory effort and No use of accessory muscles Cardio: COMMON NORMALS: regular rate and regular rhythm RATE: regular rate RHYTHM: regular rhythm Course Vital Signs: Vital signs: Vital Signs Pulse Rate 74 08/28/22 05:23 Respiratory Rate 16 08/28/22 05:23 Blood Pressure 165/82 08/28/22 04:52 Pulse Oximetry 100 08/28/22 05:23 Oxygen Delivery Me thod Room Air 08/28/22 04:52 MDM - Dental/Oral Medical Decision Making He'll be placed on antibiotics. Toradol injection here. Apparently he gets agitated with narcotic pain medication. He'll be placed on toradol orally for pain control as well as antibiotics. Because it will be a significant amount of time until he gets into the dentist, he'll be placed on antibiotics for an extended period Given his history of recurrent Abscess.He'll be placed on antibiotics. Toradol injection here. Apparently he gets agitated with narcotic pain medication. He'll be placed on toradol orally for pain control as well as antibiotics. Because it will be a significant amount of time until he gets into the dentist, he'll be placed on antibiotics for an extended period Given his history of recurrent Abscess. Discharge Plan Discharge Patient Disposition: Home Clinical Impression: Dental caries, Abscess, dental Condition: Stable Prescriptions: New cephalexin 500 mg tablet 500 mg PO QID 14 Days Qty: 56 0RF ketorolac 10 mg tablet 10 mg PO TID PRN (Reason: pain) Qty: 10 0RF No Action Toujeo Max U-300 SoloStar 300 unit/mL (3 mL) insulin pen 66 unit SUBCUT BEDTIME (DME) pen needle, diabetic [BD Ultra-Fine Micro Pen Needle] 32 gauge x 1/4 needle See Rx Instructions .ROUTE .MEDSUPPLY Qty: 360 3RF Rx Instructions: As directed naproxen 250 mg tablet 250 mg PO BID PRN Novolog FlexPen U-100 Insulin 100 unit/mL (3 mL) insulin pen See Rx Instructions .ROUTE .COMPLEX Qty: 15 5RF Rx Instructions: BEFORE MEALS 16 UNITS BASE WITH 2 UNITS OVER EVERY 100 (MAX 100 UNITS PER DAY) (DME) diabetic supplies, miscellan. Misc See Rx Instructions .ROUTE .MEDSUPPLY Qty: 100 5RF Rx Instructions: Glucometer, test strips, lancets, other necessary materials. rosuvastatin 10 mg tablet 10 mg PO DAILY Qty: 90 3RF Rx Instructions: Take 1 tablet daily varenicline 0.5 mg (11)- 1 mg (42) tablets,dose pack See Rx Instructions PO PER PKG DIR Qty: 53 0RF Rx Instructions: PO PER PKG DIR aspirin [Adult Aspirin Regimen] 81 mg tablet,delayed release (DR/EC) 81 mg PO QAM Qty: 90 0RF clopidogrel [Plavix] 75 mg tablet 75 mg PO QAM Qty: 90 3RF duloxetine 30 mg capsule,delayed release(DR/EC) 90 mg PO QAM 30 Days Qty: 90 3RF losartan 50 mg tablet 50 mg PO QAM Qty: 90 0RF propranolol 120 mg capsule,extended release 24 hr 120 mg PO QAM Qty: 90 0RF Xarelto 10 mg tablet 10 mg PO BID Qty: 180 0RF Rx Instructions: for 35 days pregabalin 150 mg capsule 150 mg PO BEDTIME Qty: 30 2RF Discharge Orders: Discharge ED (Routine); Ordered 08/28/22 Ordered By: Tacos Calderón Referrals: Tim George DO [Primary Care Provider] - Patient Instructions: Dental Caries (Cavities), Dental Abscess (ED), Pain Management Activity Restrictions/Additional Instructions: Do not take your naproxen with the ketorolac. Coding Level of Care Code ED Court Of Appeals Judge for Seun Parada
== END 2022-08-28 05:25 | disposition home or self-care (01) ==
PROVIDERS: Emergency Provider Emergency Medicine; PCP Family Medicine
DX: K02.9 Dental caries, unspecified (principal); K04.7 Periapical abscess without sinus; Z79.82 Long term (current) use of aspirin; Z79.02 Long term (current) use of antithrombotics/antiplatelets; Z79.4 Long term (current) use of insulin; I10 Essential (primary) hypertension; F17.210 Nicotine dependence, cigarettes, uncomplicated
CPT/HCPCS: 96372; 99284; J1885

== ENCOUNTER 2022-08-31 19:42 | Emergency (ER) | payer MEDICARE, MEDICAID, SELFPAY ==
[2022-05-04 15:01] VITALS: BP 140/81; BMI 23.7
[2022-08-31 19:58] VITALS: PULSE 94; TEMP 36.5; O2SAT 97; BMI 21.7
--- NOTE | 2022-08-31 20:05 | W.ED.DENTAL ---
HPI - Dental/Oral General: Chief complaint: Dental/Oral Stated complaint: Tooth Ache Time Seen by Provider: 08/31/22 20:01 History of Present Illness: 52-year-old male patient comes in with left-sided jaw pain. Patient has a history of diabetes, and blood clots. Patient routinely takes Plavix and Xarelto. Patient has no significant swelling in his dentition. Patient has very poor teeth. Patient reports no nausea vomiting or high fevers. Review of Systems General: Reports: 10 or more systems reviewed and unremarkable except in HPI and below ENMT: Reports: dental pain Card: Denies: chest pain Resp: Denies: dyspnea GI: Denies: vomiting : Denies: difficulty urinating Skin/Breast: Denies: rash Neuro: Denies: headache(s) PFSH ED PFSH: Medical History Hypertension Low back pain Major depressive disorder, single episode Peripheral neuropathy Psychiatric care PVD (peripheral vascular disease) Sleep apnea Family History Mother Cancer Hypertension Stroke Denies family history of Diabetes CAD (coronary artery disease) Social History Smoking and tobacco status: current every day smoker cigarettes Packs smoked per day: 0.5 Years cigarettes smoked: 40 Quit status (tobacco): considering quitting Alcohol intake: current Alcohol intake frequency: 3 or more drinks per day Alcohol type: hard liquor Lives independently: Yes Household members: none Housing: Homeless Marital status: Single Number of children: 1 Pets and animals: Yes Pets & animals: dog(s) Physical Exam Const: COMMON NORMALS: alert HENMT: COMMON NORMALS: normocephalic HEAD & SCALP: normocephalic MOUTH: lip abnormal TEETH & GINGIVA: Yes caries and Yes poor dentition THROAT: posterior oropharynx normal Neck/C-Spine: COMMON NORMALS: full ROM Resp: COMMON NORMALS: normal respiratory effort Cardio: COMMON NORMALS: regular rate RATE: regular rate Back/Pelvis: COMMON NORMALS: thoracic and lumbar spine normal to inspection Neuro: SENSORIUM/ORIENTATION: Yes alert Skin: COMMON NORMALS: turgor normal GENERAL SKIN EXAM: turgor normal Course Vital Signs: Vital signs: Vital Signs Temperature 97.7 F 08/31/22 19:58 Pulse Rate 94 08/31/22 19:58 Pulse Oximetry 97 08/31/22 19:58 Oxygen Delivery Me thod Room Air 08/31/22 19:58 MDM - Dental/Oral Medical Decision Making 52-year-old male patient comes in with left-sided facial pain and jaw pain. Patient right now is taking cephalexin for a dental infection. Patient continues to have some dental discomfort and has ran out of his ketorolac he was prescribed 3 days ago. On exam there is no sign of fever, or facial swelling. Patient has very poor dentition with severe tooth decay and fractures of the teeth. Differential diagnosis includes but not limited to periapical abscess, floor mouth cellulitis, dental caries, dental pain. No signs of serious illness is noted. Believe patient probably has dental pain due to the poor repair of his teeth and a resolving dental infection. We will continue patient on Celebrex due to his risk of bleeding. Patient was also given hydrocodone for severe pain. Patient stated understanding of care plan and need for follow-up or return to the ER. Discharge Plan Discharge Patient Disposition: Home Clinical Impression: Odontalgia Condition: Stable Prescriptions: New celecoxib 200 mg capsule 200 mg PO BID Qty: 20 0RF hydrocodone-acetaminophen 5-325 mg tablet 1 tab PO Q8H PRN (Reason: pain (scale score 7-10)) Qty: 10 0RF No Action Toujeo Max U-300 SoloStar 300 unit/mL (3 mL) insulin pen 66 unit SUBCUT BEDTIME (DME) pen needle, diabetic [BD Ultra-Fine Micro Pen Needle] 32 gauge x 1/4 needle See Rx Instructions .ROUTE .MEDSUPPLY Qty: 360 3RF Rx Instructions: As directed naproxen 250 mg tablet 250 mg PO BID PRN Novolog FlexPen U-100 Insulin 100 unit/mL (3 mL) insulin pen See Rx Instructions .ROUTE .COMPLEX Qty: 15 5RF Rx Instructions: BEFORE MEALS 16 UNITS BASE WITH 2 UNITS OVER EVERY 100 (MAX 100 UNITS PER DAY) (DME) diabetic supplies, miscellan. Misc See Rx Instructions .ROUTE .MEDSUPPLY Qty: 100 5RF Rx Instructions: Glucometer, test strips, lancets, other necessary materials. rosuvastatin 10 mg tablet 10 mg PO DAILY Qty: 90 3RF Rx Instructions: Take 1 tablet daily varenicline 0.5 mg (11)- 1 mg (42) tablets,dose pack See Rx Instructions PO PER PKG DIR Qty: 53 0RF Rx Instructions: PO PER PKG DIR aspirin [Adult Aspirin Regimen] 81 mg tablet,delayed release (DR/EC) 81 mg PO QAM Qty: 90 0RF clopidogrel [Plavix] 75 mg tablet 75 mg PO QAM Qty: 90 3RF duloxetine 30 mg capsule,delayed release(DR/EC) 90 mg PO QAM 30 Days Qty: 90 3RF losartan 50 mg tablet 50 mg PO QAM Qty: 90 0RF propranolol 120 mg capsule,extended release 24 hr 120 mg PO QAM Qty: 90 0RF Xarelto 10 mg tablet 10 mg PO BID Qty: 180 0RF Rx Instructions: for 35 days pregabalin 150 mg capsule 150 mg PO BEDTIME Qty: 30 2RF cephalexin 500 mg tablet 500 mg PO QID 14 Days Qty: 56 0RF ketorolac 10 mg tablet 10 mg PO TID PRN (Reason: pain) Qty: 10 0RF Discharge Orders: Discharge ED (Routine); Ordered 08/31/22 Ordered By: Leonidas Soto Referrals: Tim George DO [Primary Care Provider] - Discharge Diet: Usual diet Discharge Activity: Increase activity as tolerated Patient Instructions: Opioid Safety Activity Restrictions/Additional Instructions: Home and rest. Take acetaminophen as needed to control pain. Use celecoxib 200 mg 1 tablet twice a day to control pain. Use hydrocodone for severe pain. Use ice or heat for further pain relief. Follow-up with primary care for further instructions. Return to ED for new concerns. Coding Level of Care Code ED Dynamotor Repairer for Seun Parada
[2022-08-31] MEDS: ketorolac 10 mg Tablet PO (20:23)
[2022-08-31] MEDS: HYDROcodone-acetaminophen 5-325 mg Tablet 1 TAB PO (20:23)
== END 2022-08-31 20:22 | disposition home or self-care (01) ==
PROVIDERS: Emergency Provider Nurse Practitioner Family; PCP Family Medicine
DX: K08.89 Other specified disorders of teeth and supporting structures (principal); Z79.82 Long term (current) use of aspirin; Z79.02 Long term (current) use of antithrombotics/antiplatelets; Z79.4 Long term (current) use of insulin; I10 Essential (primary) hypertension; F17.210 Nicotine dependence, cigarettes, uncomplicated
CPT/HCPCS: 99284

== ENCOUNTER 2022-09-07 15:15 | Emergency (ER) | payer MEDICARE, MEDICAID, SELFPAY ==
[2022-05-04 15:01] VITALS: BP 140/81; BMI 23.7
[2022-09-07 15:29] VITALS: BP 128/81; PULSE 118; RESP 16; TEMP 36.6; O2SAT 98; BMI 21.7
--- NOTE | 2022-09-07 15:55 | ED_ITS ---
HPI - Dental/Oral General: Chief complaint: Dental/Oral Stated complaint: Left side jaw pain Time Seen by Provider: 09/07/22 15:45 Source: patient Mode of arrival: ambulatory Limitations: no limitations History of Present Illness: Patient is a 52-year-old male who presents to ED today with a complaint of dental pain and left-sided facial swelling. Patient states he has a longstanding history of dental caries and dental pains. He states he was put on antibiotics approximately 5 to 6 days ago (cephalexin). He states he woke up this morning with left-sided jaw pain and swelling. He states he has an appointment for dental scheduled in [place] tomorrow however does not have a ride to get to this appointment. He states he is speaking normally. He is controlling his secretions. He is eating and drinking normally. MD Complaint: tooth pain Teeth map: 1. pain/swelling; overall severe widespread periodontal disease Onset (ago): day(s) Duration: constant Severity: moderate Relieving factors: prescription analgesics Context: history of dental caries and poor dental care Associated symptoms: Denies fever(s) or odynophagia Treatment prior to arrival: other (po abx) Review of Systems Const: Denies: fever(s), chills, body aches, fatigue or malaise ENMT: Reports: dental pain; Denies: throat pain, odynophagia, swelling of lips/tongue or oral sores Card: Denies: chest pain Resp: Denies: dyspnea GI: Denies: nausea or vomiting Musc: Denies: neck pain Neuro: Denies: headache(s) [facility] ED PFSH: Medical History Hypertension Low back pain Major depressive disorder, single episode Peripheral neuropathy Psychiatric care PVD (peripheral vascular disease) Sleep apnea Family History Mother Cancer Hypertension Stroke Denies family history of Diabetes CAD (coronary artery disease) Social History Smoking and tobacco status: current every day smoker cigarettes Packs smoked per day: 0.5 Years cigarettes smoked: 40 Quit status (tobacco): considering quitting Alcohol intake: current Alcohol intake frequency: 3 or more drinks per day Alcohol type: hard liquor Substance/Drug Use: former Date of last use: MAY 2021 [place] Lives independently: Yes Household members: none Housing: Homeless Marital status: Single Number of children: 1 Pets and animals: Yes Pets & animals: dog(s) Physical Exam 2 Const: COMMON NORMALS: no acute distress, patient oriented x3, no limitations and alert GENERAL APPEARANCE: cooperative ORIENTATION/CONSCIOUSNESS: Yes awake, Yes oriented to person, Yes oriented to place and Yes oriented to time HENMT: COMMON NORMALS: normocephalic and atraumatic HEAD & SCALP: normal to inspection, normocephalic and atraumatic FACE & SINUS: sinuses nontender FACE & SINUS IMAGES: 1. mild facial swelling; does not extend past mandibular region into neck; no abscess formation MOUTH: Normal oral and palatal mucosa present, lip normal and tongue normal TEETH & GINGIVA: Yes poor dentition and Yes other (widespread dental disease) THROAT: posterior oropharynx normal, tonsils normal, uvula midline and other (No trismus, floor mouth is soft and non-elevated) Neck/C-Spine: COMMON NORMALS: full ROM and no lymphadenopathy GENERAL: Yes normal visual inspection, No anterior neck swelling and No submandibular swelling Neuro: COMMON NORMALS: patient oriented x3 and CN's II-XII intact bilaterally SENSORIUM/ORIENTATION: Yes alert, Yes oriented to person, Yes oriented to place and Yes oriented to time Course Vital Signs: Vital signs: Vital Signs Temperature 97.9 F 09/07/22 15:29 Pulse Rate 118 H 09/07/22 15:29 Respiratory Rate 16 09/07/22 15:29 Blood Pressure 128/81 09/07/22 15:29 Pulse Oximetry 98 09/07/22 15:29 Oxygen Delivery Me thod Room Air 09/07/22 15:29 MDM - Dental/Oral Medical Decision Making Patient was given IM abx here. Will add Clindamycin to current antibiotic regimen. Encourage patient to call friends/family for assistance to his dental appointment scheduled for tomorrow. Return to ED precautions given. Discharge Plan Discharge Patient Disposition: Home Clinical Impression: Dental caries, Dental abscess Condition: Stable Prescriptions: New clindamycin HCl 300 mg capsule 300 mg PO Q6H 7 Days Qty: 28 0RF No Action (DME) pen needle, diabetic [BD Ultra-Fine Micro Pen Needle] 32 gauge x 1/4 needle See Rx Instructions .ROUTE .MEDSUPPLY Qty: 360 3RF Rx Instructions: As directed naproxen 250 mg tablet 250 mg PO BID PRN Novolog FlexPen U-100 Insulin 100 unit/mL (3 mL) insulin pen See Rx Instructions .ROUTE .COMPLEX Qty: 15 5RF Rx Instructions: BEFORE MEALS 16 UNITS BASE WITH 2 UNITS OVER EVERY 100 (MAX 100 UNITS PER DAY) (DME) diabetic supplies, miscellan. Misc See Rx Instructions .ROUTE .MEDSUPPLY Qty: 100 5RF Rx Instructions: Glucometer, test strips, lancets, other necessary materials. rosuvastatin 10 mg tablet 10 mg PO DAILY Qty: 90 3RF Rx Instructions: Take 1 tablet daily varenicline 0.5 mg (11)- 1 mg (42) tablets,dose pack See Rx Instructions PO PER PKG DIR Qty: 53 0RF Rx Instructions: PO PER PKG DIR aspirin [Adult Aspirin Regimen] 81 mg tablet,delayed release (DR/EC) 81 mg PO QAM Qty: 90 0RF clopidogrel [Plavix] 75 mg tablet 75 mg PO QAM Qty: 90 3RF duloxetine 30 mg capsule,delayed release(DR/EC) 90 mg PO QAM 30 Days Qty: 90 3RF losartan 50 mg tablet 50 mg PO QAM Qty: 90 0RF propranolol 120 mg capsule,extended release 24 hr 120 mg PO QAM Qty: 90 0RF Xarelto 10 mg tablet 10 mg PO BID Qty: 180 0RF Rx Instructions: for 35 days pregabalin 150 mg capsule 150 mg PO BEDTIME Qty: 30 2RF Toujeo Max U-300 SoloStar 300 unit/mL (3 mL) insulin pen 66 unit SUBCUT BEDTIME 90 Days Qty: 20 0RF cephalexin 500 mg tablet 500 mg PO QID 14 Days Qty: 56 0RF ketorolac 10 mg tablet 10 mg PO TID PRN (Reason: pain) Qty: 10 0RF celecoxib 200 mg capsule 200 mg PO BID Qty: 20 0RF hydrocodone-acetaminophen 5-325 mg tablet 1 tab PO Q8H PRN (Reason: pain (scale score 7-10)) Qty: 10 0RF Discharge Orders: Discharge ED (Routine); Ordered 09/07/22 Ordered By: Eva Lopez Referrals: Tim George DO [Primary Care Provider] - Patient Instructions: Dental Abscess (ED), Toothache (ED) Coding Level of Care Code ED Dependency Counselor for Seun Parada
[2022-09-07] MEDS: penicillin g (L-A) 1,200,000 unit/2 mL Syr 1200000 UNIT IM (16:14)
[2022-09-07 16:22] VITALS: BP 159/80; PULSE 102; RESP 18; O2SAT 97
== END 2022-09-07 16:23 | disposition home or self-care (01) ==
PROVIDERS: Emergency Provider Physician Assistant; PCP Family Medicine
DX: K02.9 Dental caries, unspecified (principal); K04.7 Periapical abscess without sinus; Z79.4 Long term (current) use of insulin; Z79.82 Long term (current) use of aspirin; Z79.02 Long term (current) use of antithrombotics/antiplatelets; I10 Essential (primary) hypertension; F17.210 Nicotine dependence, cigarettes, uncomplicated
CPT/HCPCS: 96372; 99284; J0561